=== PATIENT | female | born 1955 | race Caucasian/White ===

== ENCOUNTER → 2016-12-15 | Outpatient (CLI) | payer MEDICARE, OTHER ==
[~2016-12-15] MED LIST: ASCO10007 PO; BACI30OI6 TOP; BETA1TAB44 PO; CALC-587 PO; CETI-269 PO; DIAZ2TAB PO; FERR325T40 PO; GABA-305 PO; LEVO500T63 PO; METH-189 PO; MORP30TA44 PO; MULT236L PO; OXYC1TAB PO
--- NOTE | 2016-12-15 17:04 | DI ---
INDICATION: ITS.REASON: D72.829 ELEVATED WBC COUNT PROCEDURE: CHEST 2-VIEWS UPRIGHT (PA \T\ LAT) Encounter: Initial COMPARISON: Chest x-rays dated March 28, 2016, June 30, 2014, March 09, 2014, July 07, [address] dated November 10, 2013 FINDINGS: No focal consolidative pneumonia identified. There is a 1 cm increased density with slightly irregular margins in the right inferior hilar area. This is not definitely confirmed on the lateral view. Appearance is seen on some of the comparison radiographs but is not seen on the older CT scan. No pleural effusion or pneumothorax. Heart size and pulmonary vascularity are normal. Mild degenerative change in the spine. Cervical spine fusion hardware. Impression: 1. No pneumonia. 2. Possible right infrahilar nodule. Follow-up options include short-term follow-up radiographs in six weeks or a contrast enhanced chest CT. .
== END ==
LOC: IMA 16:31
PROVIDERS: ATTEND Nurse Practitioner Family
DX: D72.829 Elevated white blood cell count, unspecified (principal); R91.8 Other nonspecific abnormal finding of lung field

== ENCOUNTER → 2017-01-05 | Outpatient (CLI) | payer MEDICARE, OTHER ==
[~2017-01-05] MED LIST changes: +IOHEXOL 300 MG/ML 75ml INJECTION ONE; +NORMAL SALINE 100 ML ONE; +SALINE FLUSH 10ml SYRINGE ONE
--- NOTE | 2017-01-05 16:07 | DI ---
Indication: ITS.REASON: R91.1 PROCEDURE: CT CHEST W/CONTRAST: Encounter: Initial Comparison: Chest x-ray dated December 15, [address] dated November 10, 2013 Technique: Axial CT images were performed through the chest after the administration of intravenous contrast. Coronal and sagittal two-dimensional reformats. Automated Exposure Control and Iterative Reconstruction dose reducing techniques were utilized. Contrast: Omnipaque 300 74 mL Findings: Minimal apical pleural thickening or scarring. Mild emphysema. Stable area of scarring in the left upper lobe along the major fissure. Region of linear scarring and atelectasis also noted in the right middle lobe, more prominent than the comparison study. This probably accounts for the possible infrahilar nodule seen by recent chest x-ray. There is no definite true nodule present here however. Minimal left lower lobe atelectasis. The remaining lung palmer are clear. The central airways are patent. No axillary or mediastinal adenopathy. Heart size is normal. No pericardial effusion. Great vessels appear normal. The upper abdomen shows no acute findings. Impression: Bilateral areas of pulmonary atelectasis or scarring. No worrisome pulmonary nodule or mass identified. Mild emphysema. .
== END ==
LOC: IMA 15:32
PROVIDERS: ATTEND Nurse Practitioner Family
DX: J98.11 Atelectasis (principal); J43.9 Emphysema, unspecified
CPT/HCPCS: 71260; J7050; Q9967

== ENCOUNTER 2017-08-10 15:56 | Inpatient (IN) ==
--- OUTSIDE RECORDS SUMMARY | 2017-08-10 16:13 | External Medical Summary | Continuity of Care Document ---
:1955 Author Organization [facility] Allergies Active Description Code Type Severity Reaction Onset Reported/ Identified Relationship Clinical to Patient Status Yes No Known Drug N/A N/A 06/09/2013 Drug Aller Allergies gy Yes No Known Food N/A N/A 06/09/2013 Food Aller Allergies gy Yes No Known No Drug Unknown N/A 03/12/2014 Allergies Known Aller Aller gy gies Medications Problems Date Dx Attending Type Code Diagnosis Diagnosed By Coded 06/09/2013 Yi COPE, Final 338.29 CHRONIC PAIN NEC Leonard Bowen 06/09/2013 Yi COPE, Final 518.89 OTHER LUNG Leonard Bowen DISEASE NEC 06/09/2013 Yi COPE, Final 723.1 CERVICALGIA Leonard Bowen 06/09/2013 Yi COPE, Admitting 793.19 NONSP FINDING-LF Leonard Bowen NEC Procedures Code Description Performed By Performed On DX Leonard Richmond MD 06/09/2013 [id number] BRONCHOSCOPE/LAVAGE Leonard Richmond MD 06/09/2013 [id number] BRONCHOSCOPY WITH BIOPSY Results Encounters ACCT No. Visit Discharge Status Pt. Type Provider Facility Loc./Unit Complaint Date/Time [id number] 06/09/2013 06/09/2013 CLS Outpatient Yi [facility] 9 10:39:00 23:59:59 , Ela Valle [facility] [place] [id number] 03/17/2014 03/17/2014 DIS Outpatient Ginny COPE, Cristofer GARZA 21 09:56:00 09:56:00 [facility]
[2017-08-10] MEDS ORDERED: CEFTRIAXONE (ER USE ONLY) 1 GM in NS 100 ML IV ONE (16:17)
[2017-08-10] MEDS ORDERED: NS 1,000 ML IV ONE (16:23)
[2017-08-10] MEDS ORDERED: SALINE FLUSH 10ml SYRINGE ONE ×2 (17:25→17:40)
[2017-08-10] MEDS ORDERED: IOHEXOL 350mg/ml 75ml INJECTION ONE (17:25)
[2017-08-10] MEDS ORDERED: NS 100 ML ONE (17:25)
--- NOTE | 2017-08-10 17:55 | History & Physical Report ---
History of Present Illness Date: 08/10/17 Chief complaint: altered mental status HPI: Patient is a 62 yo female who presented to the ED by EMS with altered mental status. reports patient was acting fine until yesterday afternoon . States they had Thanksgiving dinner around 1-2pm and she was falling asleep at the table. Earlier that morning she was acting her normal self. By 4pm, she was disoriented. let her sleep overnight and he worked in the yard this am. When he came in at 2pm she was still sleeping and disoriented so he called 911. O2 sat was 74% when EMS arrived. is concerned she may have OD'd on her pain medication. Her reported last dose was yesterday am, but and sons think she may have taken extra sometime during the day yesterday. She hid her pain medication (she didn't trust family who was coming for Thanksgiving), so doesn't know how many she has actually taken. She just had it refilled on 08/08. She usually takes 8/day and was just weaned to 7/d by Dr. West who is her pain management doctor. Workup in ED included CXR showing LLL infiltrate. D-Dimer was elevated so CTA chest was performed showing b/l infiltrates. Blood cultures were drawn, urine culture ordered, lactate was nl, but procalcitonin was significantly elevated. She was given a dose of ceftriaxone at 1646 and was bolused a liter of NS. BP remained <90 systolic despite over 1.5 L of fluids. Patient seen in ER. She is unable to answer any questions sensibly other than she is able to tell me her 's name. She does not know where we are. She has not run fever but had night sweats 2 nights ago and noted cough yesterday. She has trouble swallowing d/t the "steel plate in her neck" per , and she felt that she choked when taking a pill yesterday. Review of Systems All systems PM: 10-point ROS was reviewed, no additional remarkable complaints except - Constitutional Constitutional: Present: daytime sleepiness, lethargy, weight loss ( reports pt "eats like a bird." Lost down to 88# in past with pneumonia. Has lately averaged around 105-108# but 115# was her nl.) - Respiratory Respiratory: Present: cough - Gastrointestinal Gastrointestinal: Present: dysphagia (secondary to previous neck surgery) - Musculoskeletal Musculoskeletal: Present: other (chronic neck pain) - Neurological Neurological: Present: confusion, weakness - Psychiatric Psychiatric: Present: other (mental status change) PFSH Medical History Chronic neck pain Chronic Hepatitis C - in remission since the s Peripheral neuropathy COPD Surgical History: T&A age 1, hyst with BSO age 41 due to endometriosis, anterior cervical discectomy age 53 Family History: Father - unknown Mother - macular degeneration, heart valve surgery - Social History Smoking status: Former smoker (smoked for 30+ years. Quit 2011.) Substance use type: does not use Alcohol intake frequency: a few times a week Housing: house Household members: spouse Current occupational status: retired Previous occupational history: RN Social history: PCP- Alli Burnette MD Pain Management - Dr West Medications Home Medications Medication Instructions Recorded Confirmed Type Methocarbamol [Robaxin] 750 mg PO TID PRN #0 05/23/13 08/10/17 History Morphine Sulfate [Ms Contin] 30 mg PO BID #0 05/23/13 08/10/17 History Ferrous Sulfate [Iron] 325 mg PO WB #0 tab 05/01/14 08/10/17 History Ascorbic Acid [Vitamin C] 1 tab PO DAILY #0 03/14/16 08/10/17 History Bacitracin 1 applicatio TOP BID #15 gm 03/14/16 08/10/17 History Gabapentin 2 tab PO TID #180 03/14/16 08/10/17 History Acetaminophen [Acetaminophen ER] 1,300 mg PO Q4HR 08/10/17 08/10/17 History HydrOXYzine [Atarax] 25 mg PO TID 08/10/17 08/10/17 History Meloxicam 15 mg PO DAILY 08/10/17 08/10/17 History Topiramate 50 mg PO BID 08/10/17 08/10/17 History Allergies Allergy/AdvReac Type Severity Reaction Status Date / Time No Known Allergies Allergy Verified 08/10/17 19:23 Exam Vital Signs: Temperature 98.5 F 08/10/17 16:00 Pulse Rate 92 08/10/17 16:45 Respiratory Rate 16 08/10/17 16:45 Blood Pressure 84/55 08/10/17 16:45 Pulse Oximetry 96 08/10/17 16:45 Height/Weight/BMI: Height 1.63 m Weight 49 kg - Constitutional Present: no acute distress, well nourished, well developed, thin - Routine HEENT Exam Head: Present: normocephalic, atraumatic Eye: Present: PERRL. Absent: scleral injection ENT: Present: mucous membranes dry, oropharynx clear - Routine Neck Exam Absent: lymphadenopathy, thyromegaly - Routine Respiratory Exam Present: decreased breath sounds, wheezes (noted anteriorly), distant breath sounds, diminished air movement. Absent: respiratory distress - Routine Cardiovascular Exam Present: RRR, S1, S2. Absent: murmur - Routine Abdominal Exam Present: soft, normoactive bowel sounds, non distended. Absent: tenderness - Routine Extremities Exam Present: clubbing, no edema, normal capillary refill - Routine Skin Exam Present: dry, pallor, warm - Routine Neurological Exam Present: altered mental status. Absent: alert, oriented X3 (oriented to self only), normal speech (speech is slow) - Routine Psychiatric Exam Present: unable to assess. Absent: normal affect Results - Labs CBC & Chem 7: 08/10/17 16:46 08/10/17 16:46 Labs: Urinalysis 08/10/17 17:09 Ur Collection Type Urine, clean catch Urine Color Yellow Urine Clarity Clear Urine pH 5.5 Ur Specific [place] 1.025 Urine Protein 1+ A Urine Glucose (UA) Negative Urine Ketones Negative Urine Occult Blood 2+ A Urine Nitrate Negative Urine Bilirubin Negative Urine Urobilinogen 0.2 Ur Leukocyte Esterase Negative Urine RBC 0-1 Urine WBC 0-1 Ur Squamous Epith Cells 5-10 Urine Bacteria None seen Ur Culture Indicated? Cult not indicated Laboratory Tests 08/10/17 08/10/17 08/10/17 16:46 16:46 16:46 Band Neutrophils % 51.0 H D-Dimer 970 H B-Natriuretic Peptide 5700 H Laboratory Tests 08/10/17 08/10/17 08/10/17 16:46 16:46 16:46 AST 41 H ALT 29 Troponin I 0.041 Plasma Lactate 1.6 Procalcitonin 25.89 H* Microbiology Results: Microbiology 08/10/17 17:09 Urine, Voided (Cc/notcc) Urine Culture - Preliminary Culture Initiated - Results Pending 08/10/17 16:46 Peripheral/Iv Start Blood Culture - Preliminary Culture Initiated - Results Pending 08/10/17 16:50 Peripheral/Iv Start Blood Culture - Preliminary Culture Initiated - Results Pending - ECG Data Tracing #1 NSR - rate 92 Assessment and Plan (1) Acute respiratory failure with hypoxia and hypercapnia Current visit: Yes Status: Acute (2) Sepsis Problem details: Severe sepsis Current visit: Yes Status: Acute (3) Community acquired pneumonia Problem details: CAP vs aspiration pneumonia Current visit: Yes Status: Acute Assessment and Plan: Assessment: Severe sepsis as evidenced by pulmonary source, SIRS criteria of leukocytosis and bandemia, and organ dysfunction of MAP<65 and SBP<90. Acute hypoxic/hypercarbic respiratory failure CAP vs aspiration pneumonia Altered mental status - suspect narcotic overdose Leukocytosis- POA Hypernatremia - POA Chronic neck pain Chronic Hepatitis C - in remission since the s Peripheral neuropathy COPD Plan: Patient admitted to inpatient status to the CCU under the hospitalist service, Dr. Lewis attending. Expect her stay to exceed two overnights given her severe sepsis/pneumonia. SCD's and Lovenox for VTE prophylaxis. Duoneb txs QID and prn for wheezing/SOA, acapella, IS. Protonix IV for GI prophylaxis and aspiration. Check urine drug screen for other drugs of abuse. Prn Narcan if decreased respiratory drive. Rocephin and clindamycin to cover for aspiration pneumonia. Continue NS at 100cc/hr. Check urine creatinine and urine sodium. Magnesium, renal panel, BMP and CBC in am. Sputum culture and urine legionella antigen. Check ABG. Speech consult to determine diet. Ice chips for now. Patient's wishes patient to be a full code. Care to return to Dr. Burnette on dismissal. Case discussed with Dr. Lewis, Dr Hernandez (ER) and . Radu Lewis M.D. 08/10/17 7:46 PM I have independently evaluated and examined this patient. I reviewed the chart, the patient's history, and the [employer]/PA's documented findings as above. We discussed and formulated the assessment and plan as above with additions as below: Mrs. Adams was evaluated in the emergency room with her at bedside. The patient can provide no history and all history/ROS was provided by her . She's had increased confusion over the past 24 hours with cough during the same time. No fevers are recognized or rigors although she did have night sweats 2 days ago. Patient coughs coarsely intermittently while being evaluated. She additionally looked from her to examiners in the ER occasionally and making random statements like "you're talking about my mother", "who is Angela". She did not directly respond to any questions. Mr. Adams reports the patient's blood pressure is always low and that systolics in the 90s are typical. Patient received greater than 1.5 L normal saline or 30 mL/kg in the emergency room. On examination the patient is confused, neck is supple, oral membranes are dry, pupils 1.5 mm and react to light; gaze is conjugate. Skin is warm but does not tent and she is not flushed. The patient is on 5 L supplemental oxygen per nasal cannula, she is hypoventilating but breath sounds are coarse anteriorly bilaterally. Breath sounds are diminished in the posterior lung palmer with no extra sounds heard. Cardiac rhythm regular and abdomen benign. The patient follows simple commands- gripping my fingers and plantar flexing to request with symmetric power. Chest x-ray and CTA reviewed by myself-extensive left infiltrate on chest x-ray with CTA negative for PE but demonstrating left upper and lower infiltrates and right middle lobe infiltrate raising question of aspiration. Severe sepsis criteria met. Blood gas with moderate acidosis although PCO2 is only slightly elevated, bicarbonate minimally depressed so does not appear to be metabolic. Given hypoventilation will initiate BiPAP; Narcan available if needed but would like to avoid as risk triggering pain crisis and if patient has excess ingestion of long-acting narcotic Narcan and is not likely to be effective for more than brief period of time. BUN/creatinine up slightly from baseline-check urine sodium/creatinine, hydrate gently but not aggressively due to hypoxia. Elevated BNP unexplained-will likely need echocardiogram prior to discharge DVT Prophylaxis: SCD's GI Prophylaxis: Protonix Resuscitation Status: Full Code Sepsis Assessment - Evaluation Possible source: pulmonary Confirmed Suspected Infection: Yes (infiltrate on CXR) SIRS Criteria: acute mental status change, WBC > or equal to 12,000, Bands > or equal to 10% Severe Sepsis: SBP < 90, MAP <65 Hospital Course Summary Disclaimer: The visit summary below is not to be considered part of the above Progress Note. Hospital Course: Assessment: Severe sepsis as evidenced by pulmonary source, SIRS criteria of leukocytosis and bandemia, and organ dysfunction of MAP<65 and SBP<90. Acute hypoxic respiratory failure CAP vs aspiration pneumonia Altered mental status - suspect narcotic overdose Leukocytosis- POA Hypernatremia - POA Chronic neck pain Chronic Hepatitis C - in remission since the 70's Peripheral neuropathy COPD 08/10/17 CCU admission Patient admitted to inpatient status to the CCU under the hospitalist service, Dr. Lewis attending. Expect her stay to exceed two overnights given her severe sepsis/pneumonia. SCD's and Lovenox for VTE prophylaxis. Duoneb txs QID and prn for wheezing/SOA, acapella, IS. Protonix IV for GI prophylaxis and aspiration. Check urine drug screen for other drugs of abuse. Prn Narcan if decreased respiratory drive. Rocephin and clindamycin to cover for aspiration pneumonia. Continue NS at 100cc/hr. Check urine creatinine and urine sodium. Magnesium, renal panel, BMP and CBC in am. Sputum culture and urine legionella antigen. Check ABG. Speech consult to determine diet. Ice chips for now. Patient's wishes patient to be a full code. Care to return to Dr. Burnette on dismissal. Case discussed with Dr. Lewis, Dr Hernandez (ER) and .
--- NOTE | 2017-08-10 18:33 | Emergency Department Report ---
General Adult HPI - General Chief complaint: Neuro Symptoms/Deficit Stated complaint: decreased loc Time Seen by Provider: 08/10/17 16:07 - History of Present Illness HPI narrative: 62-year-old female with acute hypoxemia. Patient was drowsy and ill yesterday during Thanksgiving dinner. Ultimately at the end of dinner fell asleep sideways. In her chair. She slept in today until noon. Her woke her up and that she fell back asleep until 2:30. At that time he woke her up again checked her pulse ox and it was 79% on room air. She has a history of complicated pneumonia over the last several years with basically an annual pneumonia around this time each year. She is a recovered smoker, quitting about 7 years ago. She also is on large doses of narcotics for chronic pain. Her states that her dose is being cut back. Throughout our discussion during the workup, more and more came out about the history of narcotics. She has a history of overtaking them. He could not find her bottle in her bag of meds today when we went through them. She did not answer when asked whether they were. He thinks she may have taken them out to hide them yesterday because family was coming over. However she can't remember if or where she may have hit them. Supposedly she has not had any medication for pain since 10 AM yesterday. He states he thinks she takes Percocet 10 mg tablets, 2 tablets 4 times daily. - Related Data Home Medications Medication Instructions Recorded Confirmed Methocarbamol [Robaxin] 750 mg PO TID PRN #0 05/23/13 08/10/17 Morphine Sulfate [Ms Contin] 30 mg PO BID #0 05/23/13 08/10/17 Ferrous Sulfate [Iron] 325 mg PO WB #0 tab 05/01/14 08/10/17 Ascorbic Acid [Vitamin C] 1 tab PO DAILY #0 03/14/16 08/10/17 Bacitracin 1 applicatio TOP BID #15 gm 03/14/16 08/10/17 Gabapentin 2 tab PO TID #180 03/14/16 08/10/17 Acetaminophen [Acetaminophen ER] 1,300 mg PO Q4HR 08/10/17 08/10/17 HydrOXYzine [Atarax] 25 mg PO TID 08/10/17 08/10/17 Meloxicam 15 mg PO DAILY 08/10/17 08/10/17 Topiramate 50 mg PO BID 08/10/17 08/10/17 Previous Rx's Medication Instructions Recorded levoFLOXacin [Levaquin] 500 mg PO DAILY 7 Days #0 03/18/16 Allergies Allergy/AdvReac Type Severity Reaction Status Date / Time No Known Allergies Allergy Unverified 03/16/16 13:55 Review of Systems All systems: reviewed and negative except as stated PFSH Patient Stated Medical History Peripheral Neuropathy Yes Other Musculoskeletal Yes: NECK TRAUMA, SURGERY [facility] Medical History Sepsis (Acute Medical) Community acquired pneumonia (Acute Medical) Surgical History: T&A age 1, hyst with BSO age 41 due to endometriosis, anterior cervical discectomy age 53 - Social History Smoking status: Former smoker (smoked for 30+ years. Quit 2011.) Physical Exam - Limitations Limitations: no limitations - General General appearance: alert, in distress - Normal Exams: Head:: Normocephalic without trauma Cardiovascular:: Regular rate and rhythm, without murmur or gallop, Pulses 2+ all extremities, capillary refill, <2 seconds all extremities Abdomen:: Bowel sounds positive, soft, non-tender, non-distended, no hepatosplenomegaly, masses or bruits noted - Respiratory Respiratory exam: Present: other (diminished breath sounds), crackles Course Vital Signs Temperature 98.5 F 08/10/17 16:00 Pulse Rate 96 08/10/17 16:00 Respiratory Rate 16 08/10/17 16:00 Blood Pressure 81/50 08/10/17 16:00 Pulse Oximetry 95 08/10/17 16:00 Temperature 98.5 F 08/10/17 16:00 Pulse Rate 92 08/10/17 16:45 Respiratory Rate 16 08/10/17 16:45 Blood Pressure 84/55 08/10/17 16:45 Pulse Oximetry 96 08/10/17 16:45 Medical Decision Making - [facility] Narrative Medical decision making narrative: White count elevated at 14, patient's initial blood pressure was approximately 85/60. She seems to have some confusion, I'm not certain if this is intentional or not. She has very wet sounding cough. Bilateral pneumonia noted on both x- ray and CT She does seem to be quite sleepy as well. Ultimately d-dimer came back elevated, CT PE was negative. Lactate came back at 1.2, however pro-Raulito was 25.89. She received 1.5 L of normal saline as bolus, putting her above the 30 mL/kg bolus required for severe sepsis. Blood cultures were drawn and patient was given Rocephin 1 g. She is continued with concerning hypotension, I'm not certain if this is due to sepsis or narcotic usage or both. She denies having had any medication since 10 AM yesterday but is not having diarrhea. She will be admitted to the ICU for treatment of sepsis and pneumonia. - Lab Data Result diagrams: 08/10/17 16:46 08/10/17 16:46 Lab Results 08/10/17 08/10/17 08/10/17 Range/Units 16:46 16:46 16:46 WBC 13.8 H (4.5-11.0) T/MM3 RBC 3.93 L (4.00-5.20) M/MM3 Hgb 12.7 (12-16) GM/DL Hct 39.2 (36-46) % MCV 99.7 (80-100) UM3 MCH 32.3 (26-34) UUG MCHC 32.4 (31-37) GM/DL RDW Std Deviation 45.8 (36.9-50.2) FL Plt Count 177 (130-400) T/MM3 MPV 10.2 (9.4-12.4) UM3 Immature Gran % (Auto) Not performed Neut % (Auto) Not performed Lymph % (Auto) Not performed [place] % (Auto) Not performed Eos % (Auto) Not performed Baso % (Auto) Not performed Neut # (Auto) Not performed Lymph # (Auto) Not performed [place] # (Auto) Not performed Eos # (Auto) Not performed Baso # (Auto) Not performed Abs Immat Gran (auto) Not performed Neutrophils % (Manual) 39.0 (33-66) % Band Neutrophils % 51.0 H (0-6) % Lymphocytes % (Manual) 8.0 L (23-45) % Monocytes % (Manual) 2.0 (0-9.0) % Neutrophils # (Manual) 5.4 (1.8-7.7) T/MM3 Band Neutrophils # 7.0 T/MM3 Lymphocytes # (Manual) 1.1 (1-4.8) T/MM3 Monocytes # (Manual) 0.3 (0-0.8) T/MM3 RBC Morph Comment Normal D-Dimer 970 H (0-230) NG/ML Turbidity < 20 (0-20) Sodium 145 H (134-144) MEQ/L Potassium 3.9 (3.6-5) MEQ/L Chloride 113 H (98-107) MEQ/L Carbon Dioxide 21 L (22-30) MEQ/L Anion Gap 11 (5-15) MEQ/L BUN 38.0 H (7-17) MG/DL Creatinine 1.3 H (0.7-1.2) MG/DL GFR Calculation 41 BUN/Creatinine Ratio 29 H (6-26) RATIO Glucose 111 H (65-110) MG/DL Calculated Osmolality 289 H (261-280) MOSM/KG Calcium 8.4 (8.4-10.2) MG/DL Total Bilirubin 0.30 (0.20-1.30) MG/DL Icterus Index < 2 (0-7) AST 41 H (14-36) U/L ALT 29 (9-52) U/L Alkaline Phosphatase 74 (38-126) U/L Troponin I 0.041 (0-0.12) ng/ml B-Natriuretic Peptide 5700 H (0-175) pg/mL Total Protein 6.2 L (6.3-8.2) G/DL Albumin 3.4 L (3.5-5.0) G/DL Globulin 2.8 (2.4-3.6) G/DL Albumin/Globulin Ratio 1.2 (1.1-2.2) RATIO Plasma Lactate (0.6-2.2) MMOL/L Procalcitonin NG/ML Specimen Hemolysis 50 H (0-25) Ur Collection Type Urine Color (YELLOW) Urine Clarity Urine pH (5.0-8.0) Ur Specific [place] (1.015-1.025) Urine Protein (NEGATIVE) Urine Glucose (UA) (NEGATIVE) Urine Ketones (NEGATIVE) Urine Occult Blood (NEGATIVE) Urine Nitrate (NEGATIVE) Urine Bilirubin (NEGATIVE) Urine Urobilinogen (NORMAL) EU/DL Ur Leukocyte Esterase (NEGATIVE) Urine RBC (0-3) /HPF Urine WBC (0-5) /HPF Ur Squamous Epith Cells Urine Bacteria (NEGATIVE) Ur Culture Indicated? 08/10/17 08/10/17 08/10/17 Range/Units 16:46 16:46 17:09 WBC (4.5-11.0) T/MM3 RBC (4.00-5.20) M/MM3 Hgb (12-16) GM/DL Hct (36-46) % MCV (80-100) UM3 MCH (26-34) UUG MCHC (31-37) GM/DL RDW Std Deviation (36.9-50.2) FL Plt Count (130-400) T/MM3 MPV (9.4-12.4) UM3 Immature Gran % (Auto) Neut % (Auto) Lymph % (Auto) [place] % (Auto) Eos % (Auto) Baso % (Auto) Neut # (Auto) Lymph # (Auto) [place] # (Auto) Eos # (Auto) Baso # (Auto) Abs Immat Gran (auto) Neutrophils % (Manual) (33-66) % Band Neutrophils % (0-6) % Lymphocytes % (Manual) (23-45) % Monocytes % (Manual) (0-9.0) % Neutrophils # (Manual) (1.8-7.7) T/MM3 Band Neutrophils # T/MM3 Lymphocytes # (Manual) (1-4.8) T/MM3 Monocytes # (Manual) (0-0.8) T/MM3 RBC Morph Comment D-Dimer (0-230) NG/ML Turbidity (0-20) Sodium (134-144) MEQ/L Potassium (3.6-5) MEQ/L Chloride (98-107) MEQ/L Carbon Dioxide (22-30) MEQ/L Anion Gap (5-15) MEQ/L BUN (7-17) MG/DL Creatinine (0.7-1.2) MG/DL GFR Calculation BUN/Creatinine Ratio (6-26) RATIO Glucose (65-110) MG/DL Calculated Osmolality (261-280) MOSM/KG Calcium (8.4-10.2) MG/DL Total Bilirubin (0.20-1.30) MG/DL Icterus Index (0-7) AST (14-36) U/L ALT (9-52) U/L Alkaline Phosphatase (38-126) U/L Troponin I (0-0.12) ng/ml B-Natriuretic Peptide (0-175) pg/mL Total Protein (6.3-8.2) G/DL Albumin (3.5-5.0) G/DL Globulin (2.4-3.6) G/DL Albumin/Globulin Ratio (1.1-2.2) RATIO Plasma Lactate 1.6 (0.6-2.2) MMOL/L Procalcitonin 25.89 H* NG/ML Specimen Hemolysis (0-25) Ur Collection Type Urine, clean catch Urine Color Yellow (YELLOW) Urine Clarity Clear Urine pH 5.5 (5.0-8.0) Ur Specific [place] 1.025 (1.015-1.025) Urine Protein 1+ A (NEGATIVE) Urine Glucose (UA) Negative (NEGATIVE) Urine Ketones Negative (NEGATIVE) Urine Occult Blood 2+ A (NEGATIVE) Urine Nitrate Negative (NEGATIVE) Urine Bilirubin Negative (NEGATIVE) Urine Urobilinogen 0.2 (NORMAL) EU/DL Ur Leukocyte Esterase Negative (NEGATIVE) Urine RBC 0-1 (0-3) /HPF Urine WBC 0-1 (0-5) /HPF Ur Squamous Epith Cells 5-10 Urine Bacteria None seen (NEGATIVE) Ur Culture Indicated? Cult not indicated Disposition Clinical Impression: Pneumonia, Hypotension, Sepsis Disposition: 02 To [facility] Acute Care Condition: Stable Prescriptions: No Action Methocarbamol [Robaxin] 750 mg PO TID PRN #0 Morphine Sulfate [Ms Contin] 30 mg PO BID #0 Ferrous Sulfate [Iron] 325 mg PO WB #0 tab Ascorbic Acid [Vitamin C] 1 tab PO DAILY #0 levoFLOXacin [Levaquin] 500 mg PO DAILY 7 Days #0 Topiramate 50 mg PO BID HydrOXYzine [Atarax] 25 mg PO TID Bacitracin 1 applicatio TOP BID #15 gm Gabapentin 2 tab PO TID #180 Meloxicam 15 mg PO DAILY Acetaminophen [Acetaminophen ER] 1,300 mg PO Q4HR Referrals: Alli Burnette MD [Family Provider] - Time of Disposition: 18:39 - Seen By: physician
[2017-08-10 19:28] VITALS: BMI 19.8
[2017-08-10] MEDS ORDERED: ONDANSETRON 4 MG/2 ML INJECTION IVP PRN (20:05)
[2017-08-10] MEDS ORDERED: ALBUTEROL 2.5mg/3ml (0.083%) NEB AEROSOL PRN (20:05)
[2017-08-10] MEDS ORDERED: NALOXONE 0.4 MG/ML INJECTION IVP PRN (20:05)
[2017-08-10] MEDS ORDERED: ACETAMINOPHEN 650 MG SUPPOSITORY PR PRN (20:05)
[2017-08-10] MEDS: NS 1,000 ML IV SCH (20:22)
[2017-08-10] MEDS: PANTOPRAZOLE 40 MG INJECTION IVP SCH (20:22)
[2017-08-10] MEDS: CLINDAMYCIN PB 300 MG/50 ML BAG IV SCH (20:51)
[2017-08-11] MEDS: CLINDAMYCIN PB 300 MG/50 ML BAG IV SCH ×4 (02:22→20:20)
[2017-08-11] MEDS: TOPIRAMATE 25 MG TABLET PO SCH ×3 (06:34→21:24)
[2017-08-11] MEDS: ALBUTEROL/IPRATROPIUM 2.5mg-0.5mg/3ml NEB AEROSOL SCH ×4 (07:14→20:52)
[2017-08-11] MEDS: NS 1,000 ML IV SCH ×2 (07:27→20:18)
[2017-08-11] MEDS: CEFTRIAXONE 1 G in NS 100 ML IV SCH (09:06)
[2017-08-11] MEDS: PANTOPRAZOLE 40 MG INJECTION IVP SCH (09:06)
[2017-08-11] MEDS ORDERED: LEVOFLOXACIN PB 750 MG/150 ML BAG IV SCH (10:15)
[2017-08-11] MEDS: LIDOCAINE 1% 2ml INJ 10 MG, POTASSIUM CHLORIDE INJ 10 MEQ in NS 100 ML IV SCH ×4 (11:40→15:33)
--- NOTE | 2017-08-11 17:21 | Progress Note ---
<Blanche Rey - Last Filed: 08/11/17 17:17> - Date 08/11/17 Subjective: Patient is seen lying in bed this morning. Her is present. She is still very slow to answer questions. Her thinks there's been mild improvement , but very little. He was able to retrieve her medications from home and these are reviewed. He brought in methocarbamol, topiramate, gabapentin, Mobic, ferrous sulfate, and hydroxyzine. Patient is able to tell me her son's names, that she lives in [place], and we are at [facility]. She did not sleep well last night. States she "feels crappy." Denies chest pain or shortness of breath. Is not interested in eating, but knows she needs to. Objective Vital signs: Temperature 97.9 F 08/11/17 12:00 Pulse Rate 99 08/11/17 12:00 Respiratory Rate 16 08/11/17 16:00 Blood Pressure 122/78 08/11/17 12:00 Pulse Oximetry 96 08/11/17 16:00 Height/Weight/BMI: Height 1.63 m Weight 53.8 kg Body Mass Index 19.8 - Constitutional Present: no acute distress, thin - Routine Respiratory Exam Present: decreased breath sounds, wheezes, distant breath sounds, diminished air movement - Routine Cardiovascular Exam Present: RRR, S1, S2. Absent: murmur - Routine Abdominal Exam Present: soft, normoactive bowel sounds, non distended. Absent: tenderness - Routine Extremities Exam Present: no edema, normal capillary refill - Routine Skin Exam Present: dry, pallor, warm - Routine Neurological Exam Present: alert, altered mental status, moving all extremities. Absent: normal speech (speech is slow) - Routine Lymphatic Exam Lymphatic: Absent: adenopathy - Routine Psychiatric Exam Present: cooperative, depressed. Absent: normal thought process Results - Labs CBC & Chem 7: 08/11/17 03:55 08/11/17 03:55 Labs: strep pneumonia antigen positive - ABG Interpretation ABG results: 08/10/17 08/11/17 19:20 10:40 ABG pH 7.230 L 7.290 L ABG pCO2 48 H 40 ABG pO2 70 L 76 L ABG HCO3 20 L 19 L ABG Total CO2 21.6 L 20.4 L ABG O2 Saturation 90.0 L 93.0 L ABG Base Excess -7.5 L -6.9 L Assessment and Plan (1) Sepsis Problem details: Severe sepsis Current visit: Yes Status: Acute (2) Community acquired pneumonia Problem details: CAP vs aspiration pneumonia Current visit: Yes Status: Acute (3) Acute respiratory failure with hypoxia and hypercapnia Current visit: Yes Status: Acute Assessment and Plan: Assessment: Severe sepsis as evidenced by pulmonary source, SIRS criteria of leukocytosis and bandemia, and organ dysfunction of MAP<65 and SBP<90. Acute hypoxic/hypercarbic respiratory failure CAP vs aspiration pneumonia Altered mental status - suspect narcotic overdose Hypokalemia (not POA) + urine drug screen for oxycodone and opiates Leukocytosis- POA Hypernatremia - POA Chronic neck pain Chronic Hepatitis C - in remission since the Peripheral neuropathy COPD Plan: I confirmed through [facility]'s pharmacy that patient filled morphine sulfate 30 mg ER to be taken 1 twice a day #60 pills on 06/25/17. She received a prescription for morphine sulfate 15 mg ER to be taken 2 in the AM 1 in the evening #90 pills filled on 07/20/17. She filled a prescription for oxycodone 10 mg 1-2 every 4-6 hours when necessary #180 on 08/08/17 with instructions not to start the prescription until 08/10/17. Maximum 6 per day. She also had a prescription for Ambien 5 mg 1 at bedtime #30 pills filled on 07/24/17. And, her Atarax 25 mg to be taken 3 times a day when necessary has been filled routinely every month at #90 pills. Continue antibiotics for pneumonia. She was positive for strep pneumonia antigen. She was given supplemental potassium for hypokalemia. Continues to require 5L O2 per NC. Levaquin was started and after her dose she c/o itching, thus it was DC'd. Speech therapy evaluated pt and recommends clear liquids. They will re-eval on Sun. Hospital Course Summary Disclaimer: The visit summary below is not to be considered part of the above Progress Note. Hospital Course: Assessment: Severe sepsis as evidenced by pulmonary source, SIRS criteria of leukocytosis and bandemia, and organ dysfunction of MAP<65 and SBP<90. Acute hypoxic/hypercarbic respiratory failure CAP vs aspiration pneumonia Altered mental status - suspect narcotic overdose Hypokalemia (not POA) + urine drug screen for oxycodone and opiates Leukocytosis- POA Hypernatremia - POA Chronic neck pain Chronic Hepatitis C - in remission since the 70's Peripheral neuropathy COPD 08/10/17 CCU admission Patient admitted to inpatient status to the CCU under the hospitalist service, Dr. Lewis attending. Expect her stay to exceed two overnights given her severe sepsis/pneumonia. SCD's and Lovenox for VTE prophylaxis. Duoneb txs QID and prn for wheezing/SOA, acapella, IS. Protonix IV for GI prophylaxis and aspiration. Check urine drug screen for other drugs of abuse. Prn Narcan if decreased respiratory drive. Rocephin and clindamycin to cover for aspiration pneumonia. Continue NS at 100cc/hr. Check urine creatinine and urine sodium. Magnesium, renal panel, BMP and CBC in am. Sputum culture and urine legionella antigen. Check ABG. Speech consult to determine diet. Ice chips for now. Patient's wishes patient to be a full code. Care to return to Dr. Burnette on dismissal. Case discussed with Dr. Lewis, Dr Hernandez (ER) and . 08/11/17 I confirmed through [facility]'s pharmacy that patient filled morphine sulfate 30 mg ER to be taken 1 twice a day #60 pills on 06/25/17. She received a prescription for morphine sulfate 15 mg ER to be taken 2 in the AM 1 in the evening #90 pills filled on 07/20/17. She filled a prescription for oxycodone 10 mg 1-2 every 4-6 hours when necessary #180 on 08/08/17 with instructions not to start the prescription until 08/10/17. Maximum 6 per day. She also had a prescription for Ambien 5 mg 1 at bedtime #30 pills filled on 07/24/17. And, her Atarax 25 mg to be taken 3 times a day when necessary has been filled routinely every month at #90 pills. Continue antibiotics for pneumonia. She was positive for strep pneumonia antigen. She was given supplemental potassium for hypokalemia. Continues to require 5L O2 per NC. Levaquin was started and after her dose she c/o itching, thus it was DC'd. Speech therapy evaluated pt and recommends clear liquids. They will re-eval on Sun. <Raquel Lewis - Last Filed: 08/11/17 18:33> - Date 08/11/17 Results - Labs CBC & Chem 7: 08/11/17 03:55 08/11/17 03:55 - ABG Interpretation ABG results: 08/10/17 08/11/17 19:20 10:40 ABG pH 7.230 L 7.290 L ABG pCO2 48 H 40 ABG pO2 70 L 76 L ABG HCO3 20 L 19 L ABG Total CO2 21.6 L 20.4 L ABG O2 Saturation 90.0 L 93.0 L ABG Base Excess -7.5 L -6.9 L Assessment and Plan (1) Acute respiratory failure with hypoxia and hypercapnia Current visit: Yes Status: Acute (2) Sepsis Problem details: Severe sepsis Current visit: Yes Status: Acute (3) Community acquired pneumonia Problem details: CAP vs aspiration pneumonia Current visit: Yes Status: Acute Assessment and Plan: I have independently evaluated and examined this patient. I reviewed the chart, the patient's history, and the [employer]/PA's documented findings as above. We discussed and formulated the assessment and plan as above with additions as below: Christine was seen with her and sons at the bedside this morning. The patient was passive and remains confused but is more interactive than she was yesterday; she was more talkative but perseverated when she got on one topic. Patient doesn't really think she is short of breath and denies cough- reports some cough with minimal sputum. Flat affect, awake but residual psychomotor retardation present Respirations nonlabored, coarse breath sounds especially left posterior field; no wheezing MAEW, spontaneous movements 41% bands, residual acidosis with normalization of pCO2, bicarbonate 21, anion gap 9 Patient developed itching at the IV site almost immediately after Levaquin initiated and complained of diarrhea with Levaquin- reported past history of C. difficile with Levaquin; medication discontinued. Mr. Adams found additional medications at home this afternoon including bottles of extended release morphine 15 mg and OxyIR filled 08/10-15 tablets are unaccounted for although he believes 5 of these tablets are in a daily medication dispensing unit which had previously been brought to the ICU. Patient stares blankly when asked about morphine or oxycodone. Additionally the found a small spoon and segment of straw mixed with narcotics suggesting that she's been crushing and snorting some medication. Several packs of cigarettes were found hidden with medications. Her sons expressed concern about patient getting extra medications from a friend. Repeat chest x-ray in a.m. Persistent sedation although slowly improved. Continue current antibiotics. Oxygen most recently titrated to 2 L. Potassium supplemented earlier today-change fluids to saline with 20 mEq potassium. Lengthy discussion with and sons; second discussion with later in the day. DVT Prophylaxis: SCD's, Lovenox GI Prophylaxis: Protonix Resuscitation Status: Full Code - Time spent with patient Time with patient PN: other (40min) Coordination of Care: >50% of visit spent providing counseling/coordination of care Hospital Course Summary Disclaimer: The visit summary below is not to be considered part of the above Progress Note.
[2017-08-11] MEDS: NS with KCL 20 mEq 1,000 ML IV SCH (19:29)
[2017-08-11] MEDS: GABAPENTIN 600 MG TABLET PO SCH (21:24)
[2017-08-11] MEDS: ACETAMINOPHEN 325 MG TABLET PO PRN (21:24)
[2017-08-12] MEDS: CLINDAMYCIN PB 300 MG/50 ML BAG IV SCH ×4 (03:25→19:20)
[2017-08-12] MEDS: ACETAMINOPHEN 325 MG TABLET PO PRN ×2 (05:06→12:12)
[2017-08-12] MEDS: ALBUTEROL/IPRATROPIUM 2.5mg-0.5mg/3ml NEB AEROSOL SCH ×3 (07:51→15:45)
--- NOTE | 2017-08-12 08:21 | XRay Report ---
Indication: pneumonia/hypoxia PROCEDURE: XR chest 1V: Encounter: Initial Comparison: CT angiogram of the chest dated August 06 Findings: Bilateral airspace consolidation is again noted with worsening in both lower lobes and increasing small pleural effusions. No pneumothorax. Cardiac silhouette is at the upper limits of normal in size. Mediastinal contours are stable. Pulmonary vascularity is somewhat obscured. Impression: Worsening pneumonia. .
[2017-08-12] MEDS: CEFTRIAXONE 1 G in NS 100 ML IV SCH (09:53)
[2017-08-12] MEDS: ENOXAPARIN 40 MG/0.4 ML INJECTION SQ SCH (09:54)
[2017-08-12] MEDS: GABAPENTIN 600 MG TABLET PO SCH ×3 (09:54→20:04)
[2017-08-12] MEDS: TOPIRAMATE 25 MG TABLET PO SCH ×2 (09:55→20:03)
--- NOTE | 2017-08-12 10:09 | CT Scan Report ---
Indication: dyspnea, elevated ddimer PROCEDURE: CT angio pulm emboli: Encounter: Initial Comparison: Chest x-ray dated August 10, 2017 Technique: Axial CT pulmonary angiographic phase images were performed through the chest after the administration of intravenous contrast. Coronal and Sagittal MIP reconstructed images were created and reviewed. Automated Exposure Control and Iterative Reconstruction dose reducing techniques were utilized. Contrast: Omnipaque 350 60 mL Findings: Pulmonary arteries: Exam is diagnostic to the subsegmental pulmonary arterial level. There are no filling defects identified to suggest a pulmonary embolus. Other findings: Scattered areas of significant consolidation in the left upper lobe, right middle lobe and left lower lobe. Small left pleural effusion. No pneumothorax. Mild emphysema. The left lower lobe bronchi are partially occluded by soft tissue or debris. No axillary adenopathy. Mildly prominent hilar lymph nodes. Heart is mildly enlarged without pericardial effusion. The upper abdomen shows no acute findings. Impression: 1. No pulmonary embolus. 2. Multifocal airspace consolidation could be due to pneumonia or aspiration. There is a preliminary report by [facility]. .
--- NOTE | 2017-08-12 10:09 | XRay Report ---
INDICATION: hypoxemia PROCEDURE: CHEST 2-VIEWS UPRIGHT (PA & LAT) Encounter: Initial COMPARISON: Chest CT from the same date FINDINGS: Multifocal airspace consolidation which involves the left lung and right middle lobe is again seen. Trace left effusion. No pneumothorax. Heart size and mediastinal contours are stable. Cervical spine fusion hardware. Impression: Bilateral areas of consolidation, worse on the left could be due to pneumonia or significant aspiration event. .
[2017-08-12] MEDS: SALINE FLUSH 10ml SYRINGE IVF PRN (10:11)
[2017-08-12] MEDS: PANTOPRAZOLE 40 MG INJECTION IVP SCH (10:12)
[2017-08-12] MEDS: D5-1/2NS with KCL 20mEq 1,000 ML IV SCH ×2 (10:12→21:35)
[2017-08-12] MEDS: LIDOCAINE 1% 2ml INJ 10 MG, POTASSIUM CHLORIDE INJ 10 MEQ in NS 100 ML IV SCH ×4 (11:02→15:08)
[2017-08-12] MEDS: NS with KCL 20 mEq 1,000 ML IV SCH (12:13)
--- NOTE | 2017-08-12 19:17 | Progress Note ---
- Date 08/12/17 Subjective: Christine was seen with her at the bedside. The patient was much more alert today and reports that it's easier to breathe than yesterday. She denied cough or sputum production. She denied nausea but complains of diarrhea. She is frustrated with liquid diet. She reports that she walked with the nurses in the hallway last night and that she slept well overnight. She complains of pain in her hands due to neuropathy from prior neck fracture. She hints at acknowledging crushing morphine tablets and snorting them but does not actually admitt to doing so- "I think I might remember that". She does not remember/ acknowledge use of oxycodone in the 1-2 days prior to admission. Objective Vital signs: Temperature 96.3 F L 08/12/17 15:49 Pulse Rate 96 08/12/17 16:12 Respiratory Rate 16 08/12/17 15:49 Blood Pressure 122/82 08/12/17 15:49 Pulse Oximetry 97 08/12/17 15:49 I/O 2589/475 weight up 2.2 kg from admission EXAM General-NAD, alert, generally able to respond to questions although very vague about medication use HEENT-conjugate gaze, conjunctiva clear, sclera anicteric, oral membranes clear Lungs-respirations nonlabored, good airflow, crackles anterior lung palmer R>L Cardiac-regular rhythm, S1-S2-sinus rhythm on telemetry by my review Abd-soft, nontender, nondistended, diminished bowel sounds Ext-without edema Neuro-MAEW Psych-calm, cooperative; flat affect. - Height/Weight/BMI: Height 1.63 m Weight 54.5 kg Body Mass Index 19.8 Results - Labs CBC & Chem 7: 08/12/17 04:03 08/12/17 04:03 Labs: S72, B21, L6, E1 Procalcitonin 7.6 from 25.89 Microbiology Results: Blood culture 2 negative after 2 days, urine culture mixed bacterial fatimah - ABG Interpretation ABG results: 08/10/17 08/11/17 19:20 10:40 ABG pH 7.230 L 7.290 L ABG pCO2 48 H 40 ABG pO2 70 L 76 L ABG HCO3 20 L 19 L ABG Total CO2 21.6 L 20.4 L ABG O2 Saturation 90.0 L 93.0 L ABG Base Excess -7.5 L -6.9 L - Imaging and Cardiology Chest x-ray Status: image reviewed by me (increased left> right infiltrates, small pleural effusions.) Assessment and Plan (1) Acute respiratory failure with hypoxia and hypercapnia Current visit: Yes Status: Acute (2) Sepsis Problem details: Severe sepsis Current visit: Yes Status: Acute (3) Community acquired pneumonia Problem details: CAP (strep pneumo Ag+) vs aspiration pneumonia Current visit : Yes Status: Acute Assessment and Plan: Assessment: Severe sepsis as evidenced by pulmonary source, SIRS criteria of leukocytosis and bandemia, and organ dysfunction of MAP<65 and SBP<90. Acute hypoxic/hypercarbic respiratory failure CAP vs aspiration pneumonia Altered mental status - suspect narcotic overdose Hypokalemia (not POA) + urine drug screen for oxycodone and opiates Leukocytosis-POA Hypernatremia-POA Acute kidney injury-POA Chronic neck pain Chronic Hepatitis C - in remission since the Peripheral neuropathy COPD Plan: Chest x-ray shows increased infiltrate however the patient is clinically improved and procalcitonin and bands are decreasing. Oxygenating well on room air. Continue Rocephin for possible strep pneumonia and clindamycin for aspiration. Medically stable to transfer out of ICU. Potassium added to IV fluids and additional potassium boluses given IV for correction of hypokalemia, continue to monitor. Speech therapy to reevaluate tomorrow, given improvement in level of alertness anticipate that diet will be advanced. Patient's and I addressed concern that the patient has been inappropriately using narcotics. The patient listened politely and seems to acknowledge that changes will need to be made. Psychiatry consult planned tomorrow; flat affect-probable underlying depression. I advised the patient that Dr. West will be notified of her hospitalization and the current concerns regarding medication use. Patient reports that Dr. West office has been tapering narcotic doses downward in the past couple of months but offers no additional information. Mr. Adams confronted the patient regarding packs of cigarettes found in the home ; nicotine patch offered to the patient but she declined at present-patch ordered when necessary. Renal function has normalized with hydration. DVT Prophylaxis: Lovenox Resuscitation Status: Full Code - Time spent with patient Time with patient PN: other (40 minutes) Coordination of Care: >50% of visit spent providing counseling/coordination of care Hospital Course Summary Disclaimer: The visit summary below is not to be considered part of the above Progress Note. Hospital Course: Assessment: Severe sepsis as evidenced by pulmonary source, SIRS criteria of leukocytosis and bandemia, and organ dysfunction of MAP<65 and SBP<90. Acute hypoxic/hypercarbic respiratory failure CAP vs aspiration pneumonia Altered mental status - suspect narcotic overdose Hypokalemia (not POA) + urine drug screen for oxycodone and opiates Leukocytosis- POA Hypernatremia - POA Chronic neck pain Chronic Hepatitis C - in remission since the Peripheral neuropathy COPD 08/10/17 CCU admission Patient admitted to inpatient status to the CCU under the hospitalist service, Dr. Lewis attending. Expect her stay to exceed two overnights given her severe sepsis/pneumonia. SCD's and Lovenox for VTE prophylaxis. Duoneb txs QID and prn for wheezing/SOA, acapella, IS. Protonix IV for GI prophylaxis and aspiration. Check urine drug screen for other drugs of abuse. Prn Narcan if decreased respiratory drive. Rocephin and clindamycin to cover for aspiration pneumonia. Continue NS at 100cc/hr. Check urine creatinine and urine sodium. Magnesium, renal panel, BMP and CBC in am. Sputum culture and urine legionella antigen. Check ABG. Speech consult to determine diet. Ice chips for now. Patient's wishes patient to be a full code. Care to return to Dr. Burnette on dismissal. Case discussed with Dr. Lewis, Dr Hernandez (ER) and . 08/11/17 I confirmed through [facility]'s pharmacy that patient filled morphine sulfate 30 mg ER to be taken 1 twice a day #60 pills on 06/25/17. She received a prescription for morphine sulfate 15 mg ER to be taken 2 in the AM 1 in the evening #90 pills filled on 07/20/17. She filled a prescription for oxycodone 10 mg 1-2 every 4-6 hours when necessary #180 on 08/08/17 with instructions not to start the prescription until 08/10/17. Maximum 6 per day. She also had a prescription for Ambien 5 mg 1 at bedtime #30 pills filled on 07/24/17. And, her Atarax 25 mg to be taken 3 times a day when necessary has been filled routinely every month at #90 pills. Continue antibiotics for pneumonia. She was positive for strep pneumonia antigen. She was given supplemental potassium for hypokalemia. Continues to require 5L O2 per NC. Levaquin was started and after her dose she c/o itching, thus it was Dc'd. Speech therapy evaluated pt and recommends clear liquids. They will re-eval on 08/12/17 Chest x-ray shows increased infiltrate however the patient is clinically improved and procalcitonin and bands are decreasing. Oxygenating well on room air. Continue Rocephin for possible strep pneumonia and clindamycin for aspiration. Medically stable to transfer out of ICU. Potassium added to IV fluids and additional potassium boluses given IV for correction of hypokalemia, continue to monitor. Speech therapy to reevaluate tomorrow, given improvement in level of alertness anticipate that diet will be advanced. Patient's and I addressed concern that the patient has been inappropriately using narcotics. The patient listened politely and seems to acknowledge that changes will need to be made. Psychiatry consult planned tomorrow; I advised the patient that Dr. West will be notified of her hospitalization and the current concerns regarding medication use. Patient reports that Dr. Wset office has been tapering narcotic doses downward in the past couple of months but offers no additional information. Mr. Adams confronted the patient regarding packs of cigarettes found in the home ; nicotine patch offered to the patient but she declined at present-patch ordered when necessary. Renal function has normalized with hydration.
[2017-08-12] MEDS ORDERED: NICOTINE 14 MG PATCH TD PRN (19:29)
[2017-08-13] MEDS: D5-1/2NS with KCL 20mEq 1,000 ML IV SCH ×4 (01:59→15:03)
[2017-08-13] MEDS: CLINDAMYCIN PB 300 MG/50 ML BAG IV SCH ×4 (01:59→20:24)
[2017-08-13] MEDS: ACETAMINOPHEN 325 MG TABLET PO PRN (06:16)
[2017-08-13] MEDS ORDERED: NICOTINE PATCH REMOVAL TD PRN (06:31)
[2017-08-13] MEDS ORDERED: IBUPROFEN 400 MG TABLET PO ONE (07:50)
[2017-08-13] MEDS: TOPIRAMATE 25 MG TABLET PO SCH ×2 (08:07→20:25)
[2017-08-13] MEDS: GABAPENTIN 600 MG TABLET PO SCH ×3 (08:08→20:25)
[2017-08-13] MEDS: ENOXAPARIN 40 MG/0.4 ML INJECTION SQ SCH (08:13)
[2017-08-13] MEDS: ALBUTEROL/IPRATROPIUM 2.5mg-0.5mg/3ml NEB AEROSOL PRN ×2 (09:08→13:16)
[2017-08-13] MEDS: CEFTRIAXONE 1 G in NS 100 ML IV SCH (09:18)
--- NOTE | 2017-08-13 09:42 | Progress Note ---
<Ava Rust D - Last Filed: 08/13/17 09:39> - Date 08/13/17 Subjective: Christine was complaining of severe neck pain earlier and a dose of ibuprofen was administered. She still frequently rubs her neck. She was A&O x3 and answered questions appropriately. She has had frequent diarrhea - 4 episodes over night. She reports a hx of C-diff while on antibiotics and is concerned about that infection. She has mild cramping along with the diarrhea. She is also hungry and eagerly awaiting eval by speech therapy. She feels SOA and weak, especially with activity. She continues to have a cough, occasionally productive. She admits to feeling her heart race sometimes - believes it's r/t panic attacks. She has diffuse tremors. Objective Vital signs: Temperature 97.1 F 08/13/17 07:45 Pulse Rate 57 L 08/13/17 07:45 Respiratory Rate 16 08/13/17 09:09 Blood Pressure 123/77 08/13/17 07:45 Pulse Oximetry 95 08/13/17 09:09 Height/Weight/BMI: Height 1.63 m Weight 53.2 kg Body Mass Index 19.8 - Constitutional Present: well nourished, well developed, thin - Routine HEENT Exam Eye: Absent: conjunctival icterus, scleral injection ENT: Present: mucous membranes dry, oropharynx clear - Routine Respiratory Exam Present: decreased breath sounds - Routine Cardiovascular Exam Present: RRR, S1, S2 - Routine Abdominal Exam Present: soft, normoactive bowel sounds, non distended - Routine Extremities Exam Present: no edema - Routine Musculoskeletal Exam Musculoskeletal: Present: moving extremities well - Routine Skin Exam Present: intact, dry, warm - Routine Neurological Exam Present: alert, oriented X3, CN II-XII intact, normal speech, tremors - Routine Psychiatric Exam Present: cooperative. Absent: normal affect (flat) Results - Labs CBC & Chem 7: 08/13/17 04:34 08/13/17 04:34 - ABG Interpretation ABG results: 08/11/17 10:40 ABG pH 7.290 L ABG pCO2 40 ABG pO2 76 L ABG HCO3 19 L ABG Total CO2 20.4 L ABG O2 Saturation 93.0 L ABG Base Excess -6.9 L Assessment and Plan (1) Sepsis Problem details: Severe sepsis Current visit: Yes Status: Acute (2) Community acquired pneumonia Problem details: CAP (strep pneumo Ag+) vs aspiration pneumonia Current visit : Yes Status: Acute (3) Acute respiratory failure with hypoxia and hypercapnia Current visit: Yes Status: Acute Assessment and Plan: Assessment: Severe sepsis as evidenced by pulmonary source, SIRS criteria of leukocytosis and bandemia, and organ dysfunction of MAP<65 and SBP<90. Acute hypoxic/hypercarbic respiratory failure CAP (strep pneumo) +/- aspiration pneumonia Altered mental status - suspect narcotic overdose - resolved Hypokalemia (not POA) + urine drug screen for oxycodone and opiates Leukocytosis-POA Hypernatremia-POA Acute kidney injury-POA Chronic neck pain Chronic Hepatitis C - in remission since the Peripheral neuropathy COPD Plan: Diarrhea - check stool for C. diff & start probiotics. Could be r/t withdrawal symptoms. Tremor - suspect withdrawal. D/W Dr. Lewis - resume MS Contin 15 mg BID. Encephalopathy/poss aspiration - Speech therapy evaluated this am - recommendations pending. Hypernatremia/Hypokalemia - K still low but improved - order KDur if ok with speech; Na remains elevated at 147 - cont D5 1/2 NS with KCl. Strep pneumo CAP & poss aspiration - Continue Rocephin and clindamycin - both were started on 08/10/17. Leukocytosis persists but bands have decreased. Psych eval pending. DVT Prophylaxis: Lovenox Resuscitation Status: Full Code Hospital Course Summary Disclaimer: The visit summary below is not to be considered part of the above Progress Note. Hospital Course: Assessment: Severe sepsis as evidenced by pulmonary source, SIRS criteria of leukocytosis and bandemia, and organ dysfunction of MAP<65 and SBP<90. Acute hypoxic/hypercarbic respiratory failure CAP vs aspiration pneumonia Altered mental status - suspect narcotic overdose Hypokalemia (not POA) + urine drug screen for oxycodone and opiates Leukocytosis- POA Hypernatremia - POA Chronic neck pain Chronic Hepatitis C - in remission since the Peripheral neuropathy COPD 08/10/17 CCU admission Patient admitted to inpatient status to the CCU under the hospitalist service, Dr. Lewis attending. Expect her stay to exceed two overnights given her severe sepsis/pneumonia. SCD's and Lovenox for VTE prophylaxis. Duoneb txs QID and prn for wheezing/SOA, acapella, IS. Protonix IV for GI prophylaxis and aspiration. Check urine drug screen for other drugs of abuse. Prn Narcan if decreased respiratory drive. Rocephin and clindamycin to cover for aspiration pneumonia. Continue NS at 100cc/hr. Check urine creatinine and urine sodium. Magnesium, renal panel, BMP and CBC in am. Sputum culture and urine legionella antigen. Check ABG. Speech consult to determine diet. Ice chips for now. Patient's wishes patient to be a full code. Care to return to Dr. Burnette on dismissal. Case discussed with Dr. Lewis, Dr Hernandez (ER) and . 08/11/17 I confirmed through [facility]'s pharmacy that patient filled morphine sulfate 30 mg ER to be taken 1 twice a day #60 pills on 06/25/17. She received a prescription for morphine sulfate 15 mg ER to be taken 2 in the AM 1 in the evening #90 pills filled on 07/20/17. She filled a prescription for oxycodone 10 mg 1-2 every 4-6 hours when necessary #180 on 08/08/17 with instructions not to start the prescription until 08/10/17. Maximum 6 per day. She also had a prescription for Ambien 5 mg 1 at bedtime #30 pills filled on 07/24/17. And, her Atarax 25 mg to be taken 3 times a day when necessary has been filled routinely every month at #90 pills. Continue antibiotics for pneumonia. She was positive for strep pneumonia antigen. She was given supplemental potassium for hypokalemia. Continues to require 5L O2 per NC. Levaquin was started and after her dose she c/o itching, thus it was Dc'd. Speech therapy evaluated pt and recommends clear liquids. They will re-eval on 08/12/17 Chest x-ray shows increased infiltrate however the patient is clinically improved and procalcitonin and bands are decreasing. Oxygenating well on room air. Continue Rocephin for possible strep pneumonia and clindamycin for aspiration. Medically stable to transfer out of ICU. Potassium added to IV fluids and additional potassium boluses given IV for correction of hypokalemia, continue to monitor. Speech therapy to reevaluate tomorrow, given improvement in level of alertness anticipate that diet will be advanced. Patient's and I addressed concern that the patient has been inappropriately using narcotics. The patient listened politely and seems to acknowledge that changes will need to be made. Psychiatry consult planned tomorrow; I advised the patient that Dr. West will be notified of her hospitalization and the current concerns regarding medication use. Patient reports that Dr. West office has been tapering narcotic doses downward in the past couple of months but offers no additional information. Mr. Adams confronted the patient regarding packs of cigarettes found in the home ; nicotine patch offered to the patient but she declined at present-patch ordered when necessary. Renal function has normalized with hydration. 08/13/17 09:50 Diarrhea - check stool for C. diff & start probiotics. Could be r/t withdrawal symptoms. Tremor - suspect withdrawal. D/W Dr. Lewis - resume MS Contin 15 mg BID. Encephalopathy/poss aspiration - Speech therapy evaluated this am - recommendations pending. Hypernatremia/Hypokalemia - K still low but improved - order KDur if ok with speech; Na remains elevated at 147 - cont D5 1/2 NS with KCl. Strep pneumo CAP & poss aspiration - Continue Rocephin and clindamycin - both were started on 08/10/17. Leukocytosis persists but bands have decreased. Psych eval pending. <Raquel Lewis - Last Filed: 08/13/17 21:36> - Date 08/13/17 Results - Labs CBC & Chem 7: 08/13/17 04:34 08/13/17 04:34 Assessment and Plan (1) Acute respiratory failure with hypoxia and hypercapnia Current visit: Yes Status: Acute (2) Sepsis Problem details: Severe sepsis Current visit: Yes Status: Acute (3) Community acquired pneumonia Problem details: CAP (strep pneumo Ag+) vs aspiration pneumonia Current visit : Yes Status: Acute Assessment and Plan: I have independently evaluated and examined this patient. I reviewed the chart, the patient's history, and the INTERNATIONAL GUEST COORDINATOR/PA's documented findings as above. We discussed and formulated the assessment and plan as above with additions as below: Christine was seen midafternoon at which time her was present. Diarrhea was improving and she indicated less pain that had been present earlier in the day. She's been minimally ambulatory indicating significant fatigue. She denied dyspnea and has had minimal cough. Remains afebrile and on room air. Respirations nonlabored with no wheezing and minimal rhonchi in the left upper anterior lung field. Regular rhythm, S1-S2, no murmur or click appreciated Abdomen benign No tremor present. C. difficile negative BNP remains elevated-patient denies history of cardiac disease. Clinically no evidence of heart failure or volume overload. Phosphorus 1.6; in conjunction with hypokalemia 30 mmol K-Phos to be given IV. PT/OT consults; psychiatry evaluation initiated for today. Diet advanced per speech therapy. Hospital Course Summary Disclaimer: The visit summary below is not to be considered part of the above Progress Note.
[2017-08-13] MEDS ORDERED: POTASSIUM PHOSPHATE (mMol) 30 MMOL in NS 500ml 500 ML IV SCH (11:45)
[2017-08-13] MEDS: LACTOBACILLUS (15B cfu) CAPSULE PO SCH ×2 (12:35→17:52)
--- NOTE | 2017-08-13 21:34 | Neuropsychiatric Consult ---
[facility] HPI Date: 08/13/17 Requesting Physician: Raquel Lewis Reason for Consultation: Opiate use Start Time: 19:00 Stop Time: 19:30 History of Present Illness: HPI: 62 y/o cf BB for acute mental status changes. Psychiatry was consulted over concerns the pt has been abusing her opiate pain meds. On face to face the pt remains slightly confused and is slow to respond to some questions. She oftgen looks to her for answers. She initially said it was 2015 and later 2017. states she remains some what confused but it is improved since admission. Pt does admit she has been overusing opiates for some time due to pain and worries because her pain doctor has been decreasing her meds. She reports some morbid thoughts that she is not sure she can live without her opiates but denies S/I and states she would not hurt herself because "I want to live" and also due to her sikhism. STRESSORS: Pt has neuropathy in both arms from neck surgery PSYCH ROS: Pt initially denies feeling depressed but later states she is concerned about her pain meds being decreased. She reports issues falling asleep but relates it is due to pain. Reports morbid thoughts at times but denies S/I. Reports some anxiety but feels it is mild. Denies pamela or psychosis. Again pt has some confusion and is not considered a reliable historian at this time. PAST PSYCH: PT states she saw a psychiatrist many years ago but does not remember the details. Denies ever trying to harm herself. SUBSTANCE ABUSE: reports a long hx of opiate use due to pain. He reports she often runs out early and was found to be crushing and snorting her meds recently. He states she was treated for alcohol use many years ago. COLLATERAL INFO: states pt is still confused but he is worried about her opiate use. He does not believe she would try to harm herself but could harm herself accidentally due to OD. FORMERLY [facility], [facility]1983 Patient Stated Medical History Peripheral Neuropathy Yes Cataracts Yes: cataract surgery February 2017 Pneumonia Yes: 2014, about every 2 years Other Musculoskeletal Yes: NECK TRAUMA, SURGERY [facility] Medical History Sepsis (Acute Medical) Severe sepsis Community acquired pneumonia (Acute Medical) CAP (strep pneumo Ag+) vs aspiration pneumonia Pneumonia (Acute Medical) Hypotension (Acute Medical) Acute respiratory failure with hypoxia (Acute Medical) Acute respiratory failure with hypoxia and hypercapnia (Acute Medical) Surgical History: T&A age 1, hyst with BSO age 41 due to endometriosis, anterior cervical discectomy age 53 - Social History Current residence: Apartment/Private Home Review of Systems - Psychiatric Psychiatric: Present: depression Mental Status Exam Vitals: Last Vital Signs Temp 99.0 F 08/13/17 20:00 Pulse 95 08/13/17 20:00 Resp 16 08/13/17 20:00 BP 125/71 08/13/17 20:00 Pulse Ox 92 08/13/17 20:00 Height: 1.63 m Weight: 53.2 kg - Mental Status Exam Muscle Strength/Tone: Normal Dressing: Casual Grooming: Good Attitude: Guarded Motor Activity: Retardation Eye Contact: Fair Speech: Slowed Volume: Soft Rhythm: Mumbled Orientation: Oriented to person, Oriented to place Mood: Depressed Affect: Sad Rate of Thoughts: Delayed Thought Organization: [place] Associations: Intact Abstract Reasoning: Poor abstract reasoning Thought Content: Normal Perception/Psychotic: Hx psychosis, not current Language: Naming Impaired Memory: Poor-immediate Suicidal Ideation: None Homicidal Ideation: None Insight: Poor Judgement: Poor Impulse Control: Poor - Laboratory Result Diagrams: 08/13/17 04:34 08/13/17 04:34 Laboratory Results - last 24 hr 08/13/17 08/13/17 08/13/17 04:34 04:34 13:03 WBC 16.5 H RBC 3.53 L Hgb 11.5 L Hct 33.9 L MCV 96.0 MCH 32.6 MCHC 33.9 RDW Std Deviation 44.1 Plt Count 216 MPV 10.1 Neutrophils % (Manual) 72.0 H Band Neutrophils % 4.0 D Lymphocytes % (Manual) 19.0 L Monocytes % (Manual) 5.0 Neutrophils # (Manual) 11.9 H Band Neutrophils # 0.7 Lymphocytes # (Manual) 3.1 Monocytes # (Manual) 0.8 RBC Morph Comment Normal Turbidity < 20 Sodium 147 H Potassium 3.3 L Chloride 121 H Carbon Dioxide 18 L Anion Gap 8 BUN 10.0 D Creatinine 0.7 GFR Calculation 84 BUN/Creatinine Ratio 14 Glucose 149 H Calculated Osmolality 284 H Calcium 9.3 Phosphorus 1.6 L Magnesium 1.6 Icterus Index < 2 B-Natriuretic Peptide 9640 H Albumin 2.5 L Specimen Hemolysis < 15 Stl C. diff Tox B Gene Negative Assessment and Plan (1) Delirium due to another medical condition Current visit: Yes Status: Acute Improving. Will have Dr. Brannon follow up when pt's cognition has improved (2) Opiate abuse, continuous Current visit: Yes Status: Acute Will have Dr. Brannon see when confusion has resolved
[2017-08-13] MEDS: ZOLPIDEM 5 MG TABLET PO PRN (21:50)
[2017-08-14] MEDS: D5-1/2NS with KCL 20mEq 1,000 ML IV SCH ×2 (01:13→14:22)
[2017-08-14] MEDS: CLINDAMYCIN PB 300 MG/50 ML BAG IV SCH ×4 (01:15→19:45)
[2017-08-14] MEDS: LACTOBACILLUS (15B cfu) CAPSULE PO SCH ×3 (07:54→17:42)
[2017-08-14] MEDS: TOPIRAMATE 25 MG TABLET PO SCH ×2 (08:10→21:00)
[2017-08-14] MEDS: GABAPENTIN 600 MG TABLET PO SCH ×3 (08:11→21:01)
[2017-08-14] MEDS: ENOXAPARIN 40 MG/0.4 ML INJECTION SQ SCH (08:11)
--- NOTE | 2017-08-14 08:47 | XRay Report ---
INDICATION: pneumonia PROCEDURE: CHEST 2-VIEWS UPRIGHT (PA & LAT) Encounter: Initial COMPARISON: August 12, 2017 FINDINGS: Bilateral areas of airspace consolidation are again noted without significant change. Left pleural effusion is slightly larger. Small right effusion is also slightly increased. No pneumothorax. Heart size and mediastinal contours are stable. Pulmonary vascularity is obscured. Impression: Continued bilateral pneumonia with slight increase in small effusions. .
[2017-08-14] MEDS: CEFTRIAXONE 1 G in NS 100 ML IV SCH (09:03)
--- NOTE | 2017-08-14 09:40 | Progress Note ---
<Magnolia Gibbs V - Last Filed: 08/14/17 09:34> - Date 08/14/17 Subjective: Christine is seen today in follow up. She has just ambulated to the bathroom and describes feeling "winded". She is currently on 3 liters of oxygen to maintain saturations. She reports having chest pain only with coughing, and does report small amounts of productive sputum. Appetite diminished however she is trying. Overall fatigued. Objective Vital signs: Temperature 97.9 F 08/14/17 07:48 Pulse Rate 74 08/14/17 07:48 Respiratory Rate 20 08/14/17 07:48 Blood Pressure 124/78 08/14/17 07:48 Pulse Oximetry 92 08/14/17 07:48 Height/Weight/BMI: Height 1.63 m Weight 54.5 kg Body Mass Index 19.8 - Constitutional Present: mild distress, well nourished, well developed - Routine HEENT Exam Eye: Present: EOMI ENT: Present: mucous membranes moist, dentition normal - Routine Respiratory Exam Absent: wheezes Comments: Course breath sounds on Right, Diminished left - Routine Cardiovascular Exam Present: RRR, S1, S2. Absent: murmur - Routine Abdominal Exam Present: soft, normoactive bowel sounds, non distended. Absent: tenderness - Routine Extremities Exam Present: full ROM, normal capillary refill - Routine Back/Spine/Pelvis Exam Back/Spine: Present: full ROM - Routine Skin Exam Present: intact, dry, warm - Routine Neurological Exam Present: alert, oriented X3, CN II-XII intact, moving all extremities - Routine Lymphatic Exam Lymphatic: Absent: adenopathy - Routine Psychiatric Exam Present: normal affect, cooperative Results - Labs CBC & Chem 7: 08/14/17 03:54 08/14/17 03:54 Assessment and Plan (1) Sepsis Problem details: Severe sepsis Current visit: Yes Status: Acute (2) Community acquired pneumonia Problem details: CAP (strep pneumo Ag+) vs aspiration pneumonia Current visit : Yes Status: Acute (3) Acute respiratory failure with hypoxia and hypercapnia Current visit: Yes Status: Acute Assessment and Plan: Impression Severe sepsis as evidenced by pulmonary source, SIRS criteria of leukocytosis and bandemia, and organ dysfunction of MAP<65 and SBP<90. Acute hypoxic/hypercarbic respiratory failure CAP (strep pneumo) +/- aspiration pneumonia Altered mental status - suspect narcotic overdose - resolved Hypokalemia (not POA) + urine drug screen for oxycodone and opiates Leukocytosis-POA Hypernatremia-POA Acute kidney injury-POA Chronic neck pain Chronic Hepatitis C - in remission since the Peripheral neuropathy COPD Plan Overall continues to be fatigued, likely from acute illness. Did discuss working with PT and OT for strengthening exercises. Continued mild hypokalemia and hypomagnesemia, oral supplementation ordered. Continue with clindamycin and Rocephin for treatment of sepsis and CAP, Today is day 4. Persistent leukocytosis, however, bandemia has improved. In today to work on weaning down oxygen as able. Blood cultures remain negative, urine culture reveals mixed fatimah. Recheck CBC, magnesium and BMP tomorrow morning to follow blood counts, renal function and electrolytes. Hospital Course Summary Disclaimer: The visit summary below is not to be considered part of the above Progress Note. Hospital Course: Assessment: Severe sepsis as evidenced by pulmonary source, SIRS criteria of leukocytosis and bandemia, and organ dysfunction of MAP<65 and SBP<90. Acute hypoxic/hypercarbic respiratory failure CAP vs aspiration pneumonia Altered mental status - suspect narcotic overdose Hypokalemia (not POA) + urine drug screen for oxycodone and opiates Leukocytosis- POA Hypernatremia - POA Chronic neck pain Chronic Hepatitis C - in remission since the Peripheral neuropathy COPD 08/10/17 CCU admission Patient admitted to inpatient status to the CCU under the hospitalist service, Dr. Lewis attending. Expect her stay to exceed two overnights given her severe sepsis/pneumonia. SCD's and Lovenox for VTE prophylaxis. Duoneb txs QID and prn for wheezing/SOA, acapella, IS. Protonix IV for GI prophylaxis and aspiration. Check urine drug screen for other drugs of abuse. Prn Narcan if decreased respiratory drive. Rocephin and clindamycin to cover for aspiration pneumonia. Continue NS at 100cc/hr. Check urine creatinine and urine sodium. Magnesium, renal panel, BMP and CBC in am. Sputum culture and urine legionella antigen. Check ABG. Speech consult to determine diet. Ice chips for now. Patient's wishes patient to be a full code. Care to return to Dr. Burnette on dismissal. Case discussed with Dr. Lewis, Dr Hernandez (ER) and . 08/11/17 I confirmed through [facility] pharmacy that patient filled morphine sulfate 30 mg ER to be taken 1 twice a day #60 pills on 06/25/17. She received a prescription for morphine sulfate 15 mg ER to be taken 2 in the AM 1 in the evening #90 pills filled on 07/20/17. She filled a prescription for oxycodone 10 mg 1-2 every 4-6 hours when necessary #180 on 08/08/17 with instructions not to start the prescription until 08/10/17. Maximum 6 per day. She also had a prescription for Ambien 5 mg 1 at bedtime #30 pills filled on 07/24/17. And, her Atarax 25 mg to be taken 3 times a day when necessary has been filled routinely every month at #90 pills. Continue antibiotics for pneumonia. She was positive for strep pneumonia antigen. She was given supplemental potassium for hypokalemia. Continues to require 5L O2 per NC. Levaquin was started and after her dose she c/o itching, thus it was Dc'd. Speech therapy evaluated pt and recommends clear liquids. They will re-eval on 08/12/17 Chest x-ray shows increased infiltrate however the patient is clinically improved and procalcitonin and bands are decreasing. Oxygenating well on room air. Continue Rocephin for possible strep pneumonia and clindamycin for aspiration. Medically stable to transfer out of ICU. Potassium added to IV fluids and additional potassium boluses given IV for correction of hypokalemia, continue to monitor. Speech therapy to reevaluate tomorrow, given improvement in level of alertness anticipate that diet will be advanced. Patient's and I addressed concern that the patient has been inappropriately using narcotics. The patient listened politely and seems to acknowledge that changes will need to be made. Psychiatry consult planned tomorrow; I advised the patient that Dr. West will be notified of her hospitalization and the current concerns regarding medication use. Patient reports that Dr. West office has been tapering narcotic doses downward in the past couple of months but offers no additional information. Mr. Adams confronted the patient regarding packs of cigarettes found in the home ; nicotine patch offered to the patient but she declined at present-patch ordered when necessary. Renal function has normalized with hydration. 08/13/17 09:50 Diarrhea - check stool for C. diff & start probiotics. Could be r/t withdrawal symptoms. Tremor - suspect withdrawal. D/W Dr. Lewis - resume MS Contin 15 mg BID. Encephalopathy/poss aspiration - Speech therapy evaluated this am - recommendations pending. Hypernatremia/Hypokalemia - K still low but improved - order KDur if ok with speech; Na remains elevated at 147 - cont D5 1/2 NS with KCl. Strep pneumo CAP & poss aspiration - Continue Rocephin and clindamycin - both were started on 08/10/17. Leukocytosis persists but bands have decreased. Psych eval pending. 08/14/17 Plan Overall continues to be fatigued, likely from acute illness. Did discuss working with PT and OT for strengthening exercises. Continued mild hypokalemia and hypomagnesemia, oral supplementation ordered. Continue with clindamycin and Rocephin for treatment of sepsis and CAP, Today is day 4. Persistent leukocytosis, however, bandemia has improved. In today to work on weaning down oxygen as able. Blood cultures remain negative, urine culture reveals mixed fatimah. Recheck CBC, magnesium and BMP tomorrow morning to follow blood counts, renal function and electrolytes. <Raquel Lewis - Last Filed: 08/14/17 17:23> - Date 08/14/17 Results - Labs CBC & Chem 7: 08/14/17 03:54 08/14/17 03:54 Assessment and Plan (1) Acute respiratory failure with hypoxia and hypercapnia Current visit: Yes Status: Acute (2) Sepsis Problem details: Severe sepsis Current visit: Yes Status: Acute (3) Community acquired pneumonia Problem details: CAP (strep pneumo Ag+) vs aspiration pneumonia Current visit : Yes Status: Acute Assessment and Plan: I have independently evaluated and examined this patient. I reviewed the chart, the patient's history, and the WATCH SUPERVISOR/PA's documented findings as above. We discussed and formulated the assessment and plan as above with additions as below: Christine complains of fatigue today although she slept well last night. She tells me she has sharp chest pain in the left upper chest today, this increases when she repositions herself. She denies pleuritic pain and has had no hemoptysis. She denies diaphoresis, radiation of pain, or nausea. Pain is nonexertional. Patient is alert and responds to questions appropriately. Anterior chest wall is nontender to palpation. Regular cardiac rhythm, S1-S2. Breath sounds clear although diminished at bases. No edema. Chest x-ray reviewed by myself demonstrates moderate left pleural effusion, small right pleural effusion and resolving infiltrates. Persistent leukocytosis-slowly improving. RT to induced sputum sample. Check EKG. Chest pain likely due to pneumonia. Magnesium replaced IV in addition to orally. Discontinue IV fluids, diuresed gently in a.m. Psychiatry evaluation initiated yesterday, additional recommendations pending. DVT Prophylaxis: Lovenox Resuscitation Status: Full Code Hospital Course Summary Disclaimer: The visit summary below is not to be considered part of the above Progress Note.
[2017-08-14] MEDS: ALBUTEROL/IPRATROPIUM 2.5mg-0.5mg/3ml NEB AEROSOL SCH ×3 (10:28→20:34)
[2017-08-14] MEDS: MAGNESIUM OXIDE 400 MG TABLET PO SCH (21:00)
[2017-08-14] MEDS: ZOLPIDEM 5 MG TABLET PO PRN (21:01)
[2017-08-14] MEDS: ALBUTEROL/IPRATROPIUM 2.5mg-0.5mg/3ml NEB AEROSOL PRN (23:57)
[2017-08-15] MEDS: CLINDAMYCIN PB 300 MG/50 ML BAG IV SCH ×4 (01:48→21:48)
[2017-08-15] MEDS: SALINE FLUSH 10ml SYRINGE IVF PRN ×2 (01:48→05:29)
[2017-08-15] MEDS ORDERED: FUROSEMIDE 20 MG/2 ML INJECTION IVP ONE (08:00)
[2017-08-15] MEDS: ENOXAPARIN 40 MG/0.4 ML INJECTION SQ SCH (08:06)
[2017-08-15] MEDS: TOPIRAMATE 25 MG TABLET PO SCH ×2 (08:07→21:47)
[2017-08-15] MEDS: LACTOBACILLUS (15B cfu) CAPSULE PO SCH ×3 (08:07→17:33)
[2017-08-15] MEDS: MAGNESIUM OXIDE 400 MG TABLET PO SCH ×2 (08:08→21:47)
[2017-08-15] MEDS: GABAPENTIN 600 MG TABLET PO SCH ×3 (08:08→21:47)
[2017-08-15] MEDS: ACETAMINOPHEN 325 MG TABLET PO PRN ×2 (08:17→15:28)
[2017-08-15] MEDS: ALBUTEROL/IPRATROPIUM 2.5mg-0.5mg/3ml NEB AEROSOL SCH ×3 (08:21→19:50)
[2017-08-15] MEDS: CEFTRIAXONE 1 G in NS 100 ML IV SCH (09:33)
[2017-08-15] MEDS: MAGNESIUM SULFATE 1gm PREMIX 1 GM/100 ML BAG IV SCH ×2 (12:31→13:38)
--- NOTE | 2017-08-15 18:31 | Progress Note ---
<Blanche Rey - Last Filed: 08/15/17 17:53> - Date 08/15/17 Subjective: Patient seen sitting in her room before supper. is present. She is feeling better. She had just finished walking with therapy and did well. She is still on 2L of O2. She is feeling stronger. is wondering when psychiatrist will be coming again to see patient. Objective Vital signs: Temperature 98.0 F 08/15/17 15:08 Pulse Rate 76 08/15/17 15:08 Respiratory Rate 18 08/15/17 15:39 Blood Pressure 102/64 08/15/17 15:08 Pulse Oximetry 93 08/15/17 16:20 Height/Weight/BMI: Height 1.63 m Weight 52.6 kg Body Mass Index 19.8 - Constitutional Present: no acute distress, thin - Routine HEENT Exam Head: Present: normocephalic, atraumatic - Routine Respiratory Exam Present: decreased breath sounds, CTA bilaterally, wheezes - Routine Cardiovascular Exam Present: RRR. Absent: murmur - Routine Abdominal Exam Present: soft, normoactive bowel sounds, non distended. Absent: tenderness - Routine Extremities Exam Present: edema, normal capillary refill - Routine Skin Exam Present: dry, warm - Routine Neurological Exam Present: alert, oriented X3. Absent: altered mental status - Routine Lymphatic Exam Lymphatic: Absent: adenopathy - Routine Psychiatric Exam Present: normal affect, cooperative Results - Labs CBC & Chem 7: 08/15/17 04:04 08/15/17 04:04 Assessment and Plan (1) Sepsis Problem details: Severe sepsis Current visit: Yes Status: Acute (2) Community acquired pneumonia Problem details: CAP (strep pneumo Ag+) vs aspiration pneumonia Current visit : Yes Status: Acute (3) Acute respiratory failure with hypoxia and hypercapnia Current visit: Yes Status: Acute Assessment and Plan: Assessment Severe sepsis as evidenced by pulmonary source, SIRS criteria of leukocytosis and bandemia, and organ dysfunction of MAP<65 and SBP<90.-resolved Acute hypoxic/hypercarbic respiratory failure - resolved CAP (strep pneumo) +/- aspiration pneumonia Altered mental status - suspect narcotic overdose - resolved Hypokalemia - not POA Hypomagnesia - not POA + urine drug screen for oxycodone and opiates Leukocytosis-POA Hypernatremia-POA Acute kidney injury-POA. Resolved. Chronic neck pain Chronic Hepatitis C - in remission since the Peripheral neuropathy COPD Plan Spent 30 minutes with patient and discussing pain management opts and concern re: opioid dependence. Dr. Brannon will see patient tomorrow. Discussed case with her. She recommends intensive 2 wk OP program with Dr. De Anda. Encouraged patient to see cognitive behavioral therapist and use as many alternative methods for pain treatment as possible. Encouraged her to speak with her PCP re: this at f-u appt. Recommend she continue the Morphine ER 15mg BID until she can start Dr. De Anda 's program. No reason to resume oxycodone or methocarbamol, Atarax, etc as she has been coping well in hospital without those meds. will lock up her meds and dispense to her. She was given IV magnesium and continues on p.o. magnesium for hypomagnesemia. Hospital Course Summary Disclaimer: The visit summary below is not to be considered part of the above Progress Note. Hospital Course: Assessment: Severe sepsis as evidenced by pulmonary source, SIRS criteria of leukocytosis and bandemia, and organ dysfunction of MAP<65 and SBP<90.-resolved Acute hypoxic/hypercarbic respiratory failure - resolved CAP (strep pneumo) +/- aspiration pneumonia Altered mental status - suspect narcotic overdose - resolved Hypokalemia - not POA Hypomagnesia - not POA + urine drug screen for oxycodone and opiates Leukocytosis-POA Hypernatremia-POA Acute kidney injury-POA. Resolved. Chronic neck pain Chronic Hepatitis C - in remission since the Peripheral neuropathy COPD 08/10/17 CCU admission Patient admitted to inpatient status to the CCU under the hospitalist service, Dr. Lewis attending. Expect her stay to exceed two overnights given her severe sepsis/pneumonia. SCD's and Lovenox for VTE prophylaxis. Duoneb txs QID and prn for wheezing/SOA, acapella, IS. Protonix IV for GI prophylaxis and aspiration. Check urine drug screen for other drugs of abuse. Prn Narcan if decreased respiratory drive. Rocephin and clindamycin to cover for aspiration pneumonia. Continue NS at 100cc/hr. Check urine creatinine and urine sodium. Magnesium, renal panel, BMP and CBC in am. Sputum culture and urine legionella antigen. Check ABG. Speech consult to determine diet. Ice chips for now. Patient's wishes patient to be a full code. Care to return to Dr. Burnette on dismissal. Case discussed with Dr. Lewis, Dr Hernandez (ER) and . 08/11/17 I confirmed through [facility]'s pharmacy that patient filled morphine sulfate 30 mg ER to be taken 1 twice a day #60 pills on 06/25/17. She received a prescription for morphine sulfate 15 mg ER to be taken 2 in the AM 1 in the evening #90 pills filled on 07/20/17. She filled a prescription for oxycodone 10 mg 1-2 every 4-6 hours when necessary #180 on 08/08/17 with instructions not to start the prescription until 08/10/17. Maximum 6 per day. She also had a prescription for Ambien 5 mg 1 at bedtime #30 pills filled on 07/24/17. And, her Atarax 25 mg to be taken 3 times a day when necessary has been filled routinely every month at #90 pills. Continue antibiotics for pneumonia. She was positive for strep pneumonia antigen. She was given supplemental potassium for hypokalemia. Continues to require 5L O2 per NC. Levaquin was started and after her dose she c/o itching, thus it was Dc'd. Speech therapy evaluated pt and recommends clear liquids. They will re-eval on 08/12/17 Chest x-ray shows increased infiltrate however the patient is clinically improved and procalcitonin and bands are decreasing. Oxygenating well on room air. Continue Rocephin for possible strep pneumonia and clindamycin for aspiration. Medically stable to transfer out of ICU. Potassium added to IV fluids and additional potassium boluses given IV for correction of hypokalemia, continue to monitor. Speech therapy to reevaluate tomorrow, given improvement in level of alertness anticipate that diet will be advanced. Patient's and I addressed concern that the patient has been inappropriately using narcotics. The patient listened politely and seems to acknowledge that changes will need to be made. Psychiatry consult planned tomorrow; I advised the patient that Dr. West will be notified of her hospitalization and the current concerns regarding medication use. Patient reports that Dr. West office has been tapering narcotic doses downward in the past couple of months but offers no additional information. Mr. Adams confronted the patient regarding packs of cigarettes found in the home ; nicotine patch offered to the patient but she declined at present-patch ordered when necessary. Renal function has normalized with hydration. 08/13/17 Diarrhea - check stool for C. diff & start probiotics. Could be r/t withdrawal symptoms. Tremor - suspect withdrawal. D/W Dr. Lewis - resume MS Contin 15 mg BID. Encephalopathy/poss aspiration - Speech therapy evaluated this am - recommendations pending. Hypernatremia/Hypokalemia - K still low but improved - order KDur if ok with speech; Na remains elevated at 147 - cont D5 1/2 NS with KCl. Strep pneumo CAP & poss aspiration - Continue Rocephin and clindamycin - both were started on 08/10/17. Leukocytosis persists but bands have decreased. Psych eval pending. 08/14/17 Overall continues to be fatigued, likely from acute illness. Did discuss working with PT and OT for strengthening exercises. Continued mild hypokalemia and hypomagnesemia, oral supplementation ordered. Continue with clindamycin and Rocephin for treatment of sepsis and CAP, Today is day 4. Persistent leukocytosis, however, bandemia has improved. In today to work on weaning down oxygen as able. Blood cultures remain negative, urine culture reveals mixed fatimah. Recheck CBC, magnesium and BMP tomorrow morning to follow blood counts, renal function and electrolytes. 08/15/17 Spent 30 minutes with patient and discussing pain management opts and concern re: opioid dependence. Dr. Brannon will see patient tomorrow. Discussed case with her. She recommends intensive 2 wk OP program with Dr. De Anda. Encouraged patient to see cognitive behavioral therapist and use as many alternative methods for pain treatment as possible. Encouraged her to speak with her PCP re: this at f-u appt. Recommend she continue the Morphine ER 15mg BID until she can start Dr. De Anda 's program. No reason to resume oxycodone or methocarbamol, Atarax, etc as she has been coping well in hospital without those meds. will lock up her meds and dispense to her. She was given IV magnesium and continues on p.o. magnesium for hypomagnesemia. <Raquel Lewis - Last Filed: 08/15/17 21:52> - Date 08/15/17 Objective Height/Weight/BMI: Results - Labs CBC & Chem 7: 08/15/17 04:04 08/15/17 04:04 Assessment and Plan (1) Acute respiratory failure with hypoxia and hypercapnia Current visit: Yes Status: Acute (2) Sepsis Problem details: Severe sepsis Current visit: Yes Status: Acute (3) Community acquired pneumonia Problem details: CAP (strep pneumo Ag+) vs aspiration pneumonia Current visit : Yes Status: Acute Assessment and Plan: I have independently evaluated and examined this patient. I reviewed the chart, the patient's history, and the SCORER SINGLE/PA's documented findings as above. We discussed and formulated the assessment and plan as above with additions as below: Isela advised me the chest discomfort is better today and dyspnea/cough have improved as well. She didn't sleep well last night and reported increased discomfort in her neck and the upper back with spasms and tightness this morning. She was up in the chair most of the morning and early afternoon. Afebrile, alert Respirations nonlabored, good airflow, breath sounds diminished at the bases L > R No wheezing or rhonchi MAEW Persistent leukocytosis but clinically improving. Day 6 antibiotics-plan 7 day course. Reassess white count in the morning, if rising will check chest x-ray again to determine if pleural effusion is increasing as effusion may need to be tapped to exclude empyema. Underlying anxiety/depressive symptoms present-will ask Dr. Brannon to address this as well. Resuscitation Status: Full Code - Time spent with patient Time with patient PN: 35 minutes Coordination of Care: >50% of visit spent providing counseling/coordination of care Hospital Course Summary Disclaimer: The visit summary below is not to be considered part of the above Progress Note.
[2017-08-15] MEDS: ZOLPIDEM 5 MG TABLET PO PRN (23:19)
[2017-08-16] MEDS: CLINDAMYCIN PB 300 MG/50 ML BAG IV SCH ×2 (03:08→11:38)
[2017-08-16] MEDS: ALBUTEROL/IPRATROPIUM 2.5mg-0.5mg/3ml NEB AEROSOL SCH ×3 (06:41→19:04)
[2017-08-16] MEDS: LACTOBACILLUS (15B cfu) CAPSULE PO SCH ×3 (09:35→17:05)
[2017-08-16] MEDS: TOPIRAMATE 25 MG TABLET PO SCH ×2 (09:35→21:16)
[2017-08-16] MEDS: MAGNESIUM OXIDE 400 MG TABLET PO SCH ×2 (09:36→21:16)
[2017-08-16] MEDS: GABAPENTIN 600 MG TABLET PO SCH ×3 (09:36→21:16)
[2017-08-16] MEDS: CEFTRIAXONE 1 G in NS 100 ML IV SCH (09:37)
[2017-08-16] MEDS: ENOXAPARIN 40 MG/0.4 ML INJECTION SQ SCH (09:38)
--- NOTE | 2017-08-16 12:06 | Progress Note ---
<Magnolia Gibbs V - Last Filed: 08/16/17 12:01> - Date 08/16/17 Subjective: Christine is seen today up in follow up. She has been intermittent morning and maintain saturations 90-91%. She overall feels better today. Denies feeling short of breath with exertion in the room. Denies chest pain or abdominal pain. Appetite continues to be diminished. She does reports a few episodes of loose stool overnight, which has been intermittent since admission. She complains of IV site irritation as it was changed today due to infiltration. Vitals stable and she is afebrile. Objective Vital signs: Temperature 97.6 F 08/16/17 10:50 Pulse Rate 82 08/16/17 07:18 Respiratory Rate 18 08/16/17 07:18 Blood Pressure 104/64 08/16/17 07:18 Pulse Oximetry 90 08/16/17 08:26 Height/Weight/BMI: Height 1.63 m Weight 50.4 kg Body Mass Index 19.8 - Constitutional Present: no acute distress, well nourished, well developed - Routine HEENT Exam Eye: Present: EOMI ENT: Present: mucous membranes moist, dentition normal - Routine Respiratory Exam Present: CTA bilaterally. Absent: wheezes - Routine Cardiovascular Exam Present: RRR, S1, S2. Absent: murmur - Routine Abdominal Exam Present: soft, normoactive bowel sounds, non distended. Absent: tenderness - Routine Extremities Exam Present: full ROM, normal capillary refill - Routine Back/Spine/Pelvis Exam Back/Spine: Present: full ROM - Routine Skin Exam Present: intact, dry, warm - Routine Neurological Exam Present: alert, oriented X3, CN II-XII intact, moving all extremities - Routine Lymphatic Exam Lymphatic: Absent: adenopathy - Routine Psychiatric Exam Present: normal affect, cooperative Results - Labs CBC & Chem 7: 08/16/17 03:59 08/16/17 03:59 Assessment and Plan (1) Sepsis Problem details: Severe sepsis Current visit: Yes Status: Acute (2) Community acquired pneumonia Problem details: CAP (strep pneumo Ag+) vs aspiration pneumonia Current visit : Yes Status: Acute (3) Acute respiratory failure with hypoxia and hypercapnia Current visit: Yes Status: Acute Assessment and Plan: Impression Severe sepsis as evidenced by pulmonary source, SIRS criteria of leukocytosis and bandemia, and organ dysfunction of MAP<65 and SBP<90.-resolved Acute hypoxic/hypercarbic respiratory failure - resolved CAP (strep pneumo) +/- aspiration pneumonia Altered mental status - suspect narcotic overdose - resolved Hypokalemia - not POA Hypomagnesia - not POA + urine drug screen for oxycodone and opiates Leukocytosis-POA Hypernatremia-POA Acute kidney injury-POA. Resolved. Chronic neck pain Chronic Hepatitis C - in remission since the Peripheral neuropathy COPD Plan Overall improving despite persistent leukocytosis. Today is day 7 of antibiotics , Rocephin and clindamycin. Will likely be able to discontinue after today. Maintaining saturations 90-91% on room air at rest. Seen by Dr Brannon this morning regarding recommendations for Opioid abuse treatment. Will talk with her later today. Continue on MS ER 15mg BID only for chronic pain control. Will discuss discharge plans further with Dr Lewis Hospital Course Summary Disclaimer: The visit summary below is not to be considered part of the above Progress Note. Hospital Course: Assessment: Severe sepsis as evidenced by pulmonary source, SIRS criteria of leukocytosis and bandemia, and organ dysfunction of MAP<65 and SBP<90.-resolved Acute hypoxic/hypercarbic respiratory failure - resolved CAP (strep pneumo) +/- aspiration pneumonia Altered mental status - suspect narcotic overdose - resolved Hypokalemia - not POA Hypomagnesia - not POA + urine drug screen for oxycodone and opiates Leukocytosis-POA Hypernatremia-POA Acute kidney injury-POA. Resolved. Chronic neck pain Chronic Hepatitis C - in remission since the Peripheral neuropathy COPD 08/10/17 CCU admission Patient admitted to inpatient status to the CCU under the hospitalist service, Dr. Lewis attending. Expect her stay to exceed two overnights given her severe sepsis/pneumonia. SCD's and Lovenox for VTE prophylaxis. Duoneb txs QID and prn for wheezing/SOA, acapella, IS. Protonix IV for GI prophylaxis and aspiration. Check urine drug screen for other drugs of abuse. Prn Narcan if decreased respiratory drive. Rocephin and clindamycin to cover for aspiration pneumonia. Continue NS at 100cc/hr. Check urine creatinine and urine sodium. Magnesium, renal panel, BMP and CBC in am. Sputum culture and urine legionella antigen. Check ABG. Speech consult to determine diet. Ice chips for now. Patient's wishes patient to be a full code. Care to return to Dr. Burnette on dismissal. Case discussed with Dr. Lewis, Dr Hernandez (ER) and . 08/11/17 I confirmed through [facility]'s pharmacy that patient filled morphine sulfate 30 mg ER to be taken 1 twice a day #60 pills on 06/25/17. She received a prescription for morphine sulfate 15 mg ER to be taken 2 in the AM 1 in the evening #90 pills filled on 07/20/17. She filled a prescription for oxycodone 10 mg 1-2 every 4-6 hours when necessary #180 on 08/08/17 with instructions not to start the prescription until 08/10/17. Maximum 6 per day. She also had a prescription for Ambien 5 mg 1 at bedtime #30 pills filled on 07/24/17. And, her Atarax 25 mg to be taken 3 times a day when necessary has been filled routinely every month at #90 pills. Continue antibiotics for pneumonia. She was positive for strep pneumonia antigen. She was given supplemental potassium for hypokalemia. Continues to require 5L O2 per NC. Levaquin was started and after her dose she c/o itching, thus it was Dc'd. Speech therapy evaluated pt and recommends clear liquids. They will re-eval on 08/12/17 Chest x-ray shows increased infiltrate however the patient is clinically improved and procalcitonin and bands are decreasing. Oxygenating well on room air. Continue Rocephin for possible strep pneumonia and clindamycin for aspiration. Medically stable to transfer out of ICU. Potassium added to IV fluids and additional potassium boluses given IV for correction of hypokalemia, continue to monitor. Speech therapy to reevaluate tomorrow, given improvement in level of alertness anticipate that diet will be advanced. Patient's and I addressed concern that the patient has been inappropriately using narcotics. The patient listened politely and seems to acknowledge that changes will need to be made. Psychiatry consult planned tomorrow; I advised the patient that Dr. West will be notified of her hospitalization and the current concerns regarding medication use. Patient reports that Dr. West office has been tapering narcotic doses downward in the past couple of months but offers no additional information. Mr. Adams confronted the patient regarding packs of cigarettes found in the home ; nicotine patch offered to the patient but she declined at present-patch ordered when necessary. Renal function has normalized with hydration. 08/13/17 Diarrhea - check stool for C. diff & start probiotics. Could be r/t withdrawal symptoms. Tremor - suspect withdrawal. D/W Dr. Lewis - resume MS Contin 15 mg BID. Encephalopathy/poss aspiration - Speech therapy evaluated this am - recommendations pending. Hypernatremia/Hypokalemia - K still low but improved - order KDur if ok with speech; Na remains elevated at 147 - cont D5 1/2 NS with KCl. Strep pneumo CAP & poss aspiration - Continue Rocephin and clindamycin - both were started on 08/10/17. Leukocytosis persists but bands have decreased. Psych eval pending. 08/14/17 Overall continues to be fatigued, likely from acute illness. Did discuss working with PT and OT for strengthening exercises. Continued mild hypokalemia and hypomagnesemia, oral supplementation ordered. Continue with clindamycin and Rocephin for treatment of sepsis and CAP, Today is day 4. Persistent leukocytosis, however, bandemia has improved. In today to work on weaning down oxygen as able. Blood cultures remain negative, urine culture reveals mixed fatimah. Recheck CBC, magnesium and BMP tomorrow morning to follow blood counts, renal function and electrolytes. 08/15/17 Spent 30 minutes with patient and discussing pain management opts and concern re: opioid dependence. Dr. Brannon will see patient tomorrow. Discussed case with her. She recommends intensive 2 wk OP program with Dr. De Anda. Encouraged patient to see cognitive behavioral therapist and use as many alternative methods for pain treatment as possible. Encouraged her to speak with her PCP re: this at f-u appt. Recommend she continue the Morphine ER 15mg BID until she can start Dr. De Anda 's program. No reason to resume oxycodone or methocarbamol, Atarax, etc as she has been coping well in hospital without those meds. will lock up her meds and dispense to her. She was given IV magnesium and continues on p.o. magnesium for hypomagnesemia. <Raquel Lewis - Last Filed: 08/16/17 22:03> - Date 08/16/17 Results - Labs CBC & Chem 7: 08/16/17 03:59 08/16/17 03:59 Assessment and Plan (1) Acute respiratory failure with hypoxia and hypercapnia Current visit: Yes Status: Acute (2) Sepsis Problem details: Severe sepsis Current visit: Yes Status: Acute (3) Community acquired pneumonia Problem details: CAP (strep pneumo Ag+) vs aspiration pneumonia Current visit : Yes Status: Acute Assessment and Plan: I have independently evaluated and examined this patient. I reviewed the chart, the patient's history, and the PLAT[employer] OPERATOR APPRENTICE/PA's documented findings as above. We discussed and formulated the assessment and plan as above with additions as below: Christine was seen with her and briefly independently. She denied dyspnea or cough but has been sneezing more. She has titrated off of oxygen at rest but desaturates quickly with any activity per RT-standing up leads to desaturation. 4 L supplemental oxygen was necessary to maintain oxygen saturation above 90% on formal ambulatory oximetry. Christine expressed anxiety about future plans when her was not present and acknowledged that she is unlikely to be able to continue care with her pain management physician. Nursing reports that patient complains of pain often but has not requested additional medications. Respirations are nonlabored with good airflow, breath sounds are clear other than diminished sounds posteriorly at the bases-especially left base where breath sounds are diminished third of the way up. Abdomen is soft Patient is more alert and fully oriented Persistent leukocytosis although slightly better than yesterday. Overnight oximetry tonight to determine if there is a need for nocturnal oxygen in addition to oxygen with activities. Both Dr. Brannon and Dr. West office have recommended Dr. Montalvo's outpatient program for narcotic management/withdrawal. Follow-up appointment scheduled in Dr. Grewal's office with Echo Tian August 22 at 10:30 AM Reassessed chest x-ray in a.m. Rocephin discontinued after 7 days, will complete 1 week clindamycin in a.m. I spoke with the PA who manages Christine's care and Dr. West office and updated her on events of hospitalization. Dr. Brannon's recommendations reviewed with her as well. Discussed with RT, case management, and nursing DVT Prophylaxis: Lovenox Resuscitation Status: Full Code Hospital Course Summary Disclaimer: The visit summary below is not to be considered part of the above Progress Note.
--- NOTE | 2017-08-16 15:34 | Progress Note ---
Progress Note: Patient seen and chart reviewed. Discussed patient's care with primary team on 08/15 and 08/16. Met with patient and her this morning. Patient reports she is feeling better and feels confusion is resolving. She is quite nervous about returning home because the previous year was quite difficult for her and she is nervous to face things without pain meds. Her pain management doctor will likely end their contract. Recommended seeking psychiatric care at Dr. Montalvo' s office in [place] and considering intensive outpatient treatment program where she would have access to psychiatrist, intensive therapy with providers familiar with dual diagnosis, and the possibility of suboxone treatment if they felt she was appropriate. Primary team to look into this; [place] might be an additional option if the above does not work for one reason or another. Please call if you have further questions, thank you!
[2017-08-16] MEDS: CLINDAMYCIN 300 MG CAPSULE PO SCH ×2 (17:32→21:16)
[2017-08-16] MEDS: ZOLPIDEM 5 MG TABLET PO PRN (23:01)
[2017-08-17] MEDS: ALBUTEROL/IPRATROPIUM 2.5mg-0.5mg/3ml NEB AEROSOL SCH ×2 (07:30→13:00)
--- NOTE | 2017-08-17 08:36 | XRay Report ---
INDICATION: hypoxia, pleural effusions, pneumonia PROCEDURE: CHEST 2-VIEWS UPRIGHT (PA & LAT) Encounter: Initial COMPARISON: August 14, 2017 FINDINGS: Small bilateral pleural effusions have slightly decreased in size. Bilateral areas of patchy airspace infiltrate and groundglass opacity are stable. No new or worsening airspace disease. No pneumothorax. Heart size and mediastinal contours are stable. Pulmonary vascular congestion is slightly improved. Impression: Slight decrease in bilateral pleural effusions. .
[2017-08-17] MEDS: ACETAMINOPHEN 325 MG TABLET PO PRN (08:52)
[2017-08-17] MEDS: LACTOBACILLUS (15B cfu) CAPSULE PO SCH ×2 (08:53→13:33)
[2017-08-17] MEDS: MAGNESIUM OXIDE 400 MG TABLET PO SCH (08:54)
[2017-08-17] MEDS: CLINDAMYCIN 300 MG CAPSULE PO SCH ×2 (08:54→13:33)
[2017-08-17] MEDS: TOPIRAMATE 25 MG TABLET PO SCH (08:54)
[2017-08-17] MEDS: GABAPENTIN 600 MG TABLET PO SCH (08:54)
[2017-08-17] MEDS: ENOXAPARIN 40 MG/0.4 ML INJECTION SQ SCH (08:54)
[2017-08-17 11:31] VITALS: BP 128/79; PULSE 69; TEMP 97.2
--- NOTE | 2017-08-17 13:08 | Discharge Summary ---
<Magnolia Gibbs V - Last Filed: 08/17/17 13:04> Discharge Information Date of admission: 08/10/17 18:23 Anticipated date of discharge: 08/17/17 Attending Physician: Raquel Lewis MD Primary care physician: Alli Burnette MD Consults: Dr. Varun Macias, Dr. Fabiano Brannon, psychiatrist - Discharge Diagnosis (1) Sepsis Status: Acute (2) Community acquired pneumonia Status: Acute (3) Acute respiratory failure with hypoxia and hypercapnia Status: Acute Severe sepsis as evidenced by pulmonary source, SIRS criteria of leukocytosis and bandemia, and organ dysfunction of MAP<65 and SBP<90.-resolved Acute hypoxic/hypercarbic respiratory failure - resolved CAP (strep pneumo) +/- aspiration pneumonia Altered mental status - suspect narcotic overdose - resolved Hypokalemia - not POA Hypomagnesia - not POA + urine drug screen for oxycodone and opiates Leukocytosis-POA Hypernatremia-POA Acute kidney injury-POA. Resolved. Chronic neck pain Chronic Hepatitis C - in remission since the Peripheral neuropathy COPD - Procedures Procedures: None - Laboratory Labs: 08/17/17 03:58 08/17/17 03:58 Laboratory Tests 08/10/17 08/12/17 16:46 04:03 Procalcitonin 25.89 H* 7.60 H* Laboratory Tests 08/10/17 16:46 Plasma Lactate 1.6 Laboratory Tests 08/10/17 Laboratory Tests 08/10/17 17:40 Ur Random Creatinine 143.8 Ur Random Sodium 9 L - Microbiology Microbiology 08/10/17 16:46 Peripheral/Iv Start Blood Culture - Final No Growth After 5 Days 08/10/17 16:50 Peripheral/Iv Start Blood Culture - Final No Growth After 5 Days 08/10/17 17:09 Urine, Voided (Cc/notcc) Urine Culture - Final Mixed Bacterial Fatimah 08/10/17 17:09 Urine Streptococcus pneumoniae Antigen - Radiology Radiology: 08/10/17 Chest v-ebc-Pampwzobnc: Bilateral areas of consolidation, worse on the left could be due to pneumonia or significant aspiration event. CT chest- Impression: 1. No pulmonary embolus. 2. Multifocal airspace consolidation could be due to pneumonia or aspiration. 08/12/17-chest g-ifc-pavursxxo pneumonia. 08/14/17-chest x-ray with continued bilateral pneumonia and small effusion 08/17/17-chest r-vfc-uflkim decrease in bilateral effusions - Pathology None History of Present Illness HPI: Patient is a 62 yo female who presented to the ED by EMS with altered mental status. reports patient was acting fine until yesterday afternoon . States they had Thanksgiving dinner around 1-2pm and she was falling asleep at the table. Earlier that morning she was acting her normal self. By 4pm, she was disoriented. let her sleep overnight and he worked in the yard this am. When he came in at 2pm she was still sleeping and disoriented so he called 911. O2 sat was 74% when EMS arrived. is concerned she may have OD'd on her pain medication. Her reported last dose was yesterday am, but and sons think she may have taken extra sometime during the day yesterday. She hid her pain medication (she didn't trust family who was coming for Thanksgiving), so doesn't know how many she has actually taken. She just had it refilled on 08/08. She usually takes 8/day and was just weaned to 7/d by Dr. West who is her pain management doctor. Workup in ED included CXR showing LLL infiltrate. D-Dimer was elevated so CTA chest was performed showing b/l infiltrates. Blood cultures were drawn, urine culture ordered, lactate was nl, but procalcitonin was significantly elevated. She was given a dose of ceftriaxone at 1646 and was bolused a liter of NS. BP remained <90 systolic despite over 1.5 L of fluids. Patient seen in ER. She is unable to answer any questions sensibly other than she is able to tell me her 's name. She does not know where we are. She has not run fever but had night sweats 2 nights ago and noted cough yesterday. She has trouble swallowing d/t the "steel plate in her neck" per , and she felt that she choked when taking a pill yesterday. Objective Vital signs: Temperature 97.2 F 08/17/17 11:29 Pulse Rate 69 08/17/17 11:29 Respiratory Rate 18 08/17/17 11:29 Blood Pressure 128/79 08/17/17 11:29 Pulse Oximetry 95 08/17/17 11:29 Height/Weight/BMI: Height 1.63 m Weight 49.5 kg Body Mass Index 19.8 - Constitutional Present: no acute distress, well nourished, well developed - Routine HEENT Exam Eye: Present: EOMI ENT: Present: mucous membranes moist, dentition normal - Routine Respiratory Exam Present: CTA bilaterally. Absent: wheezes - Routine Cardiovascular Exam Present: RRR, S1, S2. Absent: murmur - Routine Abdominal Exam Present: soft, normoactive bowel sounds, non distended. Absent: tenderness - Routine Extremities Exam Present: full ROM, normal capillary refill - Routine Back/Spine/Pelvis Exam Back/Spine: Present: full ROM - Routine Skin Exam Present: intact, dry, warm - Routine Neurological Exam Present: alert, oriented X3, CN II-XII intact, moving all extremities - Routine Lymphatic Exam Lymphatic: Absent: adenopathy - Routine Psychiatric Exam Present: normal affect, cooperative Hospital Course This is a general summary of the patient's hospital course. For more details refer to the complete medical record. Hospital course: Assessment: Severe sepsis as evidenced by pulmonary source, SIRS criteria of leukocytosis and bandemia, and organ dysfunction of MAP<65 and SBP<90.-resolved Acute hypoxic/hypercarbic respiratory failure - resolved CAP (strep pneumo) +/- aspiration pneumonia Altered mental status - suspect narcotic overdose - resolved Hypokalemia - not POA Hypomagnesia - not POA + urine drug screen for oxycodone and opiates Leukocytosis-POA Hypernatremia-POA Acute kidney injury-POA. Resolved. Chronic neck pain Chronic Hepatitis C - in remission since the 's Peripheral neuropathy COPD 08/10/17 CCU admission Patient admitted to inpatient status to the CCU under the hospitalist service, Dr. Lewis attending. Expect her stay to exceed two overnights given her severe sepsis/pneumonia. SCD's and Lovenox for VTE prophylaxis. Duoneb txs QID and prn for wheezing/SOA, acapella, IS. Protonix IV for GI prophylaxis and aspiration. Check urine drug screen for other drugs of abuse. Prn Narcan if decreased respiratory drive. Rocephin and clindamycin to cover for aspiration pneumonia. Continue NS at 100cc/hr. Check urine creatinine and urine sodium. Magnesium, renal panel, BMP and CBC in am. Sputum culture and urine legionella antigen. Check ABG. Speech consult to determine diet. Ice chips for now. Patient's wishes patient to be a full code. Care to return to Dr. Burnette on dismissal. Case discussed with Dr. Lewis, Dr Hernandez (ER) and . 08/11/17 I confirmed through [facility] pharmacy that patient filled morphine sulfate 30 mg ER to be taken 1 twice a day #60 pills on 06/25/17. She received a prescription for morphine sulfate 15 mg ER to be taken 2 in the AM 1 in the evening #90 pills filled on 07/20/17. She filled a prescription for oxycodone 10 mg 1-2 every 4-6 hours when necessary #180 on 08/08/17 with instructions not to start the prescription until 08/10/17. Maximum 6 per day. She also had a prescription for Ambien 5 mg 1 at bedtime #30 pills filled on 07/24/17. And, her Atarax 25 mg to be taken 3 times a day when necessary has been filled routinely every month at #90 pills. Continue antibiotics for pneumonia. She was positive for strep pneumonia antigen. She was given supplemental potassium for hypokalemia. Continues to require 5L O2 per NC. Levaquin was started and after her dose she c/o itching, thus it was Dc'd. Speech therapy evaluated pt and recommends clear liquids. They will re-eval on 08/12/17 Chest x-ray shows increased infiltrate however the patient is clinically improved and procalcitonin and bands are decreasing. Oxygenating well on room air. Continue Rocephin for possible strep pneumonia and clindamycin for aspiration. Medically stable to transfer out of ICU. Potassium added to IV fluids and additional potassium boluses given IV for correction of hypokalemia, continue to monitor. Speech therapy to reevaluate tomorrow, given improvement in level of alertness anticipate that diet will be advanced. Patient's and I addressed concern that the patient has been inappropriately using narcotics. The patient listened politely and seems to acknowledge that changes will need to be made. Psychiatry consult planned tomorrow; I advised the patient that Dr. West will be notified of her hospitalization and the current concerns regarding medication use. Patient reports that Dr. West office has been tapering narcotic doses downward in the past couple of months but offers no additional information. Mr. Adams confronted the patient regarding packs of cigarettes found in the home ; nicotine patch offered to the patient but she declined at present-patch ordered when necessary. Renal function has normalized with hydration. 08/13/17 Diarrhea - check stool for C. diff & start probiotics. Could be r/t withdrawal symptoms. Tremor - suspect withdrawal. D/W Dr. Lewis - resume MS Contin 15 mg BID. Encephalopathy/poss aspiration - Speech therapy evaluated this am - recommendations pending. Hypernatremia/Hypokalemia - K still low but improved - order KDur if ok with speech; Na remains elevated at 147 - cont D5 1/2 NS with KCl. Strep pneumo CAP & poss aspiration - Continue Rocephin and clindamycin - both were started on 08/10/17. Leukocytosis persists but bands have decreased. Psych eval pending. 08/14/17 Overall continues to be fatigued, likely from acute illness. Did discuss working with PT and OT for strengthening exercises. Continued mild hypokalemia and hypomagnesemia, oral supplementation ordered. Continue with clindamycin and Rocephin for treatment of sepsis and CAP, Today is day 4. Persistent leukocytosis, however, bandemia has improved. In today to work on weaning down oxygen as able. Blood cultures remain negative, urine culture reveals mixed fatimah. Recheck CBC, magnesium and BMP tomorrow morning to follow blood counts, renal function and electrolytes. 08/15/17 Spent 30 minutes with patient and discussing pain management opts and concern re: opioid dependence. Dr. Brannon will see patient tomorrow. Discussed case with her. She recommends intensive 2 wk OP program with Dr. De Adna. Encouraged patient to see cognitive behavioral therapist and use as many alternative methods for pain treatment as possible. Encouraged her to speak with her PCP re: this at f-u appt. Recommend she continue the Morphine ER 15mg BID until she can start Dr. De Anda 's program. No reason to resume oxycodone or methocarbamol, Atarax, etc as she has been coping well in hospital without those meds. will lock up her meds and dispense to her. She was given IV magnesium and continues on p.o. magnesium for hypomagnesemia. 08/17/17- Discharge Christine is seen and examined on the of discharge. Overall, she is feeling good, however, continues to be generally weak related to recent illness. She continues to require oxygen at night or while sleeping to maintain saturations. Home oxygen is set up with case management. Patient has completed a course of antibiotics. Leukocytosis is trending down at time of discharge. Extensive coordination with case management, [place] pharmacist regarding discharge meds set up as patient will do bubble packs to help manage medication carefully given history of opioid abuse. Detailed discussion with patient and regarding outpatient plan to follow with psychiatry care, Dr. Montalvo in [place] for intensive outpatient program. Medication safe will be kept in the home to lock up all medications and this will be managed by her . Patient will plan to continue on extended release morphine 15 milligrams twice a day, gabapentin 1200 milligrams 3 times a day, Tylenol 650 milligrams 3 times a day and meloxicam 15 milligrams daily. She is scheduled to follow-up at [facility] clinic with Da Mustafa APRN on August 22 at 1030 a.m. Recommend CBC at this time. Patient is discharged in stable condition with . Time spent with patient: discharge greater than 30 minutes Discharge Plan - Discharge Disposition Discharge Date: 08/17/17 Disposition: Discharged Home, Self-Care *Condition: Stable Reason For Visit (Visit label in EMR): pneumonia/severe sepsis - Discharge Medications *Discharge Medications: New Gabapentin [Neurontin] 1,200 mg PO TID #30 tab Magnesium Oxide [Magox] 400 mg PO BID #30 tab Ferrous Sulfate [Iron] 325 mg PO WB #30 tab Acidoph/L.bulg/Bif.b/S.thermop [Bacid Caplet] 2 cap PO TIDWM #30 tab Zolpidem [Ambien] 5 mg PO HS PRN #30 tab PRN Reason: Insomnia Acetaminophen [Acetaminophen 8 Hour] 650 mg PO TID #30 tablet.er Morphine Sulfate *SR* [Ms Contin] 15 mg PO BID #30 tab Continue Meloxicam 15 mg PO DAILY #30 tab Topiramate 50 mg PO BID #60 tab Ascorbic Acid [Vitamin C] 1 tab PO DAILY #30 tab Discontinued Methocarbamol [Robaxin] 750 mg PO TID PRN #0 Ferrous Sulfate [Iron] 325 mg PO WB #0 tab levoFLOXacin [Levaquin] 500 mg PO DAILY 7 Days #0 HydrOXYzine [Atarax] 25 mg PO TID Bacitracin 1 applicatio TOP BID #15 gm Gabapentin 2 tab PO TID #180 - Discharge Packet/Instructions *Diet: Regular diet *Activity: Activity as tolerated *Pain Management/Treatment: MS Contin extended release 15 milligrams twice a day. Gabapentin 1200 milligrams 3 times a day. Meloxicam 15 milligrams daily. Tylenol three times a dy *Wound Care: None Additional Instructions: [facility] will manage all medications. . Plan is to continue taking extended release morphine 15 milligrams twice a day, gabapentin 1200 milligrams 3 times a day, Tylenol 650 milligrams 3 times a day, meloxicam 15 milligrams daily. These will be the ongoing pain control plan. Plan to follow up with Dr. Montalvo's office in [place] for intensive outpatient treatment program. Use oxygen at night and while sleeping. *Expected Signs/Symptoms: Continued improvement in breathing, cough and strength *Notify Physician if: Fevers, chills, shortness of breath, chest pain or other concerning symptoms *During Business Hours Contact: Contact Dr. Burnette's office *After Business Hours Contact: Page transportation supervisor physician or present to the emergency room *Pending Lab/Results: No Pending Lab - Referrals/Follow Up *Referrals/Follow Up: Alex Tian APRN [Advanced Practice Nurse] - 1 Week (follow up appointment with Leandro Tian on August 22 at 10:30 AM. Will need CBC at that time) - Patient Handouts Patient Handouts: Sepsis (GEN), Pneumonia (GEN) - Dismissal Complete Discharge Instructions are:: Complete <Raquel Lewis - Last Filed: 08/17/17 22:55> Discharge Information Primary care physician: - Discharge Diagnosis (1) Acute respiratory failure with hypoxia and hypercapnia Status: Acute (2) Sepsis Status: Acute (3) Community acquired pneumonia Status: Acute - Laboratory Labs: 08/17/17 03:58 08/17/17 03:58 Objective Vital signs: Hospital Course This is a general summary of the patient's hospital course. For more details refer to the complete medical record. Hospital course: I have independently evaluated and examined this patient. I reviewed the chart, the patient's history, and the CLAY WASHER/PA's documented findings as above. We discussed and formulated the assessment and plan as above with additions as below: Christine is a complex course as described above. Today she denies dyspnea and was on room air at rest with saturations of 95-96%. Overnight oximetry revealed significant hypoxia with over 2 hours saturation below 89%. Home oxygen is being coordinated by case management. Additionally the patient has been instructed with his Combivent inhaler. Her has initiated contact with Dr. Montalvo's office. Chest x-ray today demonstrates slight improvement in pleural effusions and leukocytosis is improving. Examination reveals patient to be alert and in no distress. Respirations are nonlabored with good airflow and mild decreased breath sounds at the left base. Stable for discharge, patient not to control her own medications. Follow-up with Dr. Grewal/CHAPITO next week.
[2017-08-17 13:12] VITALS: O2SAT 96
[2017-08-17] MEDS ORDERED: INHALER ASSIST DEVICE (Optichamber) MC ONE (13:42)
[2017-08-17 14:07] VITALS: RESP 12
[2017-08-17] MEDS ORDERED: Ipatropium/Albuterol 20/100mcg INHALER (4gm) ORAL INH SCH (15:00)
== END 2017-08-17 13:59 | disposition home or self-care (01) | DRG 871 ==
LOC: ED 15:56 → CCU 18:23 → MED 08-12 15:30
PROVIDERS: ADMIT Internal Medicine; ATTEND Internal Medicine